=== PATIENT | female | born 1985 | race Caucasian/White ===

== ENCOUNTER → 2020-11-01 11:18 | Outpatient (BNVA) | payer OTHER, SELFPAY | PROVIDERS: PCP Internal Medicine; Visit Provider Advanced Practice Midwife | DX: Z76.89 Persons encountering health services in other specified circumstances (principal) ==

== ENCOUNTER 2020-12-22 10:52 | Outpatient (REF) | payer OTHER, SELFPAY ==
[2020-12-22 11:43] LABS: MANUAL DIFF FLAG NO
[2020-12-22 11:50] LABS: Basophils Percent Auto 0.7 % (0-2); Eosinophils Percent Auto 0.7 % (0-4); Hematocrit 37.8 % (37-47); Hemoglobin 12.5 g/dl (12.0-16.0); Lymphocytes Absolute Auto 1.8 X10*3/uL (1.2-4.9); Lymphocytes Percent Auto 44.4 % (20-40); Mean Corpuscular HGB Conc 33.1 g/dl (31.0-35.0); Mean Corpuscular Hemoglobin 30.6 pg (27.0-33.0); Mean Corpuscular Volume 92.4 fL (80-98); Mean Platelet Volume 10.7 fL (9.4-12.3); Monocytes Absolute Auto 0.2 X10*3/uL (0.1-1.2); Monocytes Percent Auto 4.4 % (2-11); Neutrophils Percent Auto 49.8 % (45-73); Platelet Count 246 X10*3/uL (160-400); Red Blood Count 4.09 X10*6/uL (4.20-5.50); Red Cell Distribution Width 12.3 % (11.0-16.0); White Blood Count 4.1 X10*3/uL (4.8-10.8)
[2020-12-22 12:27] LABS: Anion Gap 10 (12-20); Blood Urea Nitrogen 18 mg/dL (9-16); Carbon Dioxide 27 mmol/L (22-29); Chloride 105 mmol/L (96-108); Potassium 4.2 mmol/L (3.3-5.1); Sodium 138 mmol/L (135-145)
[2020-12-22 12:28] LABS: Alanine Aminotransferase 17 U/L (0-31); Alkaline Phosphatase 41 U/L (39-117); Aspartate Amino Transferase 18 U/L (5-31); Bilirubin Total 0.8 mg/dL (0.0-1.0); Calcium 8.8 mg/dL (8.4-10.2); Cholesterol 230 mg/dL; Estimated Glomerular Filt Rate > 60; Glucose Fasting 81 mg/dL (60-99); HDL Cholesterol 97 mg/dL; LDL Cholesterol Calculated 123 mg/dl; Total Protein 7.4 g/dL (6.5-8.0); Triglycerides 52 mg/dL
[2020-12-22 12:47] LABS: Vitamin D 25-OH Total 22.7 ng/mL (>30)
[2020-12-23 19:09] LABS: Folate 17.9 ng/mL (> or = 4.0); Vitamin B12 600 pg/mL (200-900)
== END 2020-12-22 10:53 | disposition home or self-care (01) ==
LOC: HO.LAB 10:52
PROVIDERS: PCP Internal Medicine; Visit Provider Internal Medicine
DX: R53.82 Chronic fatigue, unspecified (principal); E66.3 Overweight
CPT/HCPCS: 36415; 80053; 80061; 82306; 82607; 82746; 84443; 85025

== ENCOUNTER 2021-01-19 10:58 | Outpatient (REF) | payer OTHER, SELFPAY ==
[2021-01-19 17:33] LABS: CT PCR NOT DETECTED (Not Detect.); NG PCR NOT DETECTED (Not Detect.)
== END 2021-01-19 10:59 | disposition home or self-care (01) ==
LOC: HO.LAB 10:58
PROVIDERS: PCP Internal Medicine; Visit Provider Advanced Practice Midwife
DX: Z30.430 Encounter for insertion of intrauterine contraceptive device (principal); Z20.2 Contact with and (suspected) exposure to infections with a predominantly sexual mode of transmission
CPT/HCPCS: 58300; 81025; 87491; 87591

== ENCOUNTER → 2021-05-17 14:24 | Outpatient (BNVA) | payer OTHER, SELFPAY | PROVIDERS: PCP Internal Medicine; Visit Provider Surgery Vascular Surgery | DX: I83.12 Varicose veins of left lower extremity with inflammation (principal); I83.11 Varicose veins of right lower extremity with inflammation | CPT/HCPCS: 99202 ==

== ENCOUNTER 2021-06-13 10:14 | Outpatient (REF) | payer OTHER, SELFPAY ==
--- NOTE | ~2021-06-13 | US_ITS ---
EXAMINATION: BILATERAL LOWER EXTREMITY VENOUS ULTRASOUND (Reflux Exam) CLINICAL INDICATION: This is a 35-year-old female with venous insufficiency. Varicose veins. COMPARISON: None. TECHNIQUE: Color flow triplex imaging and compression Doppler was performed to evaluate both the deep and the superficial systems bilaterally. To evaluate the superficial system, the examination was performed in the upright position. Color-flow Doppler ultrasound and compression ultrasound were utilized. In addition, maneuvers were utilized to demonstrate reflux. FINDINGS: 1. DEEP VENOUS ULTRASOUND OF THE RIGHT LOWER EXTREMITY: Common Femoral Vein: Compressible, normal respiratory variation and augmented flow. Femoral vein: Compressible, normal color flow and augmentation. Popliteal Vein: Compressible, normal augmentation. Deep Reflux: There is no evidence of reflux in the deep system in either the common femoral vein or the popliteal vein. . There is no evidence of a Scales's cyst. 2. SUPERFICIAL ULTRASOUND WITH DOPPLER OF RIGHT LOWER EXTREMITY GREAT SAPHENOUS VEIN: Saphenofemoral junction: 0.3 cm Mid thigh: 0.1 cm Above knee: 0.2 cm Below knee: 0.2 cm Mid calf: 0.1 cm Ankle: 0.1 cm GSV REFLUX: No evidence of reflux. DUPLICATED GREAT SAPHENOUS VEIN: None SMALL SAPHENOUS VEIN: Upper: 0.2 cm Lower: 0.1 cm SSV REFLUX: No evidence of reflux. VEIN OF GIACOMINI: None Imaged. PERFORATORS: None Imaged VARICOSITIES: None Imaged 3. DEEP VENOUS ULTRASOUND OF THE LEFT LOWER EXTREMITY: Common Femoral Vein: Compressible, normal respiratory variation and augmented flow. Femoral vein: Compressible, normal color flow and augmentation. Popliteal Vein: Compressible, normal augmentation. Deep Reflux: There is no evidence of reflux in the deep system in either the common femoral vein or the popliteal vein. There is no evidence of a Scales's cyst. 4. SUPERFICIAL ULTRASOUND WITH DOPPLER OF LEFT LOWER EXTREMITY GREAT SAPHENOUS VEIN: Saphenofemoral junction: 0.2 cm Mid thigh: 0.1 cm Above knee: 0.2 cm Below knee: 0.1 cm Mid calf: Not seen Ankle: Not seen GSV REFLUX: No evidence of reflux. DUPLICATED GREAT SAPHENOUS VEIN: None SMALL SAPHENOUS VEIN: Upper: 0.1 cm Lower: 0.1 cm SSV REFLUX: No evidence of reflux. VEIN OF GIACOMINI: None Imaged. PERFORATORS: None Imaged VARICOSITIES: None Imaged US/US venous duplex LE BI IMPRESSION: 1. There are bilateral patent great saphenous veins and small saphenous veins, respectively, without evidence of reflux or insufficiency. 2. No varicose veins are seen.
== END 2021-06-13 10:15 | disposition home or self-care (01) ==
LOC: HO.US 10:14
PROVIDERS: PCP Internal Medicine; Visit Provider Surgery Vascular Surgery
DX: I83.893 Varicose veins of bilateral lower extremities with other complications (principal)
CPT/HCPCS: 93970

== ENCOUNTER → 2021-06-16 09:45 | Outpatient (BNVA) | payer OTHER, SELFPAY | PROVIDERS: PCP Internal Medicine; Visit Provider Surgery Vascular Surgery | DX: I83.11 Varicose veins of right lower extremity with inflammation (principal) | CPT/HCPCS: 99212 ==

== ENCOUNTER 2022-06-09 15:53 | Outpatient (REF) | payer OTHER, SELFPAY ==
[2022-06-10 02:43] LABS: CT PCR NOT DETECTED (Not Detect.); NG PCR NOT DETECTED (Not Detect.)
[2022-06-10 15:08] LABS: BV Int Neg Control Negative (Negative); BV Int Pos Control Positive (Positive)
== END 2022-06-09 15:54 | disposition home or self-care (01) ==
LOC: HO.LAB 15:53
PROVIDERS: Visit Provider Advanced Practice Midwife
DX: N89.8 Other specified noninflammatory disorders of vagina (principal); N92.0 Excessive and frequent menstruation with regular cycle; N92.1 Excessive and frequent menstruation with irregular cycle; R10.2 Pelvic and perineal pain; Z11.3 Encounter for screening for infections with a predominantly sexual mode of transmission; Z13.29 Encounter for screening for other suspected endocrine disorder
CPT/HCPCS: 87480; 87491; 87510; 87591; 87660; 99212

== ENCOUNTER 2022-07-26 14:34 | Outpatient (REF) | payer OTHER, SELFPAY ==
--- NOTE | ~2022-07-26 | US_ITS ---
EXAMINATION: US PELVIS CLINICAL INFORMATION: Pelvic and perineal pain; the last menstrual period was on 07/14/2022. COMPARISON: KUB dated 12/25/2018. TECHNIQUE: Ultrasound of the pelvis is performed using both transabdominal and transvaginal transducers along with Doppler. Transvaginal imaging is performed due to inadequate visualization transabdominally. FINDINGS: Uterus: The uterus is retroverted and retroflexed. The uterus measures 11.1 x 4.4 x 5.1 cm. The double wall endometrial thickness is 5 mm. An intrauterine device is seen within the endometrial canal. This appears mildly angulated posteriorly (78/81). The uterus is smooth in contour and has normal myometrial echogenicity. FIBROIDS: There are 3 fibroids seen. 1. Location: Rightward body, myometrial. Size: 0.7 x 0.7 x 0.8 cm. Fibroid characteristics: Hypoechoic. 2. Location: Posterior body, subserosal. Size: 1.0 x 0.8 x 1.1 cm. Fibroid characteristics: Heterogeneously hypoechoic. 3. Location: Leftward body, myometrial. Size: 1.4 x 1.1 x 1.4 cm. Fibroid characteristics: Heterogeneous echotexture. Adnexa: Both ovaries are visualized. There is normal color flow to the adnexa. There is no ovarian torsion. The right ovary measures 3.4 x 2.6 x 2.0 cm (volume 9.1 mL). The right ovary contains an equivocal 2.0 x 1.8 x 1.0 cm largest solid nodule, with a few peripheral cysts within it. The right ovary contains a dominant 0.8 x 1.4 x 1.1 cm anechoic, simple cyst. The right ovary measures 2.5 x 1.5 x 1.4 cm (volume 2.7 mL). There is moderate anechoic free fluid within the cul-de-sac. US/US pelvic and transvaginal IMPRESSION: 1. There are uterine fibroids, as detailed. 2. An intrauterine device is seen within the endometrial canal. This appears mildly angulated posteriorly. 3. A 2.0 cm solid right ovarian nodule is questioned, versus asymmetric focus of parenchymal tissue. There are simple appearing right ovarian cysts and follicles. As a precaution, a pelvic ultrasound examination is recommended in 6-12 weeks to ensure regression/resolution. 4. There is moderate free fluid within the cul-de-sac.
[2022-07-26 15:57] LABS: MANUAL DIFF FLAG NO
[2022-07-26 16:43] LABS: Basophils Percent Auto 0.4 % (0-2); Eosinophils Percent Auto 0.1 % (0-4); Hematocrit 38.2 % (37.0-47.0); Hemoglobin 12.7 g/dl (12.0-16.0); Imm Gran Abs Auto 0.02 X10*3/uL (0.00-0.03); Imm Gran Pct Auto 0.3 % (0.0-0.4); Lymphocytes Absolute Auto 2.1 X10*3/uL (1.2-4.9); Lymphocytes Percent Auto 31.7 % (20-40); Mean Corpuscular HGB Conc 33.2 g/dl (31.0-35.0); Mean Corpuscular Hemoglobin 30.1 pg (27.0-33.0); Mean Corpuscular Volume 90.5 fL (80.0-98.0); Mean Platelet Volume 10.3 fL (9.4-12.3); Monocytes Absolute Auto 0.3 X10*3/uL (0.1-1.2); Monocytes Percent Auto 5.1 % (2-11); Neutrophils Absolute Auto 4.2 x10*3/uL (2.0-8.3); Neutrophils Percent Auto 62.4 % (45-73); Platelet Count 289 X10*3/uL (160-400); Red Blood Count 4.22 X10*6/uL (4.20-5.50); Red Cell Distribution Width 12.7 % (11.0-16.0); White Blood Count 6.7 X10*3/uL (4.8-10.8)
[2022-07-26 17:35] LABS: Thyroid Stimulating Hormone 1.54 uIU/mL (0.32-4.0)
== END 2022-07-26 14:35 | disposition home or self-care (01) ==
LOC: HO.US 14:34
PROVIDERS: PCP Internal Medicine; Visit Provider Advanced Practice Midwife
DX: Z30.431 Encounter for routine checking of intrauterine contraceptive device (principal); R10.2 Pelvic and perineal pain; N92.1 Excessive and frequent menstruation with irregular cycle
CPT/HCPCS: 36415; 76830; 76856; 84443; 85025

== ENCOUNTER 2022-08-15 11:31 | Outpatient (REF) | payer OTHER, SELFPAY ==
[2022-08-17 22:17] LABS: HPV mRNA E6/E7 rflx Not Detected (Not Detected)
== END 2022-08-15 11:32 | disposition home or self-care (01) ==
LOC: HO.LNP 11:31
PROVIDERS: Visit Provider Advanced Practice Midwife
DX: Z01.419 Encounter for gynecological examination (general) (routine) without abnormal findings (principal)
CPT/HCPCS: 87624; 88142

== ENCOUNTER 2022-08-15 11:34 | Outpatient (REF) | payer OTHER, SELFPAY ==
[2022-08-15 17:30] LABS: CT PCR NOT DETECTED (Not Detect.); NG PCR NOT DETECTED (Not Detect.)
[2022-08-16 04:27] LABS: HBc Num1 0.15 S/CO (0.00-0.79); HIV AB/AG Nonreactive (Nonreactive); HIV Num 1 0.07 S/CO (0.00-0.99); Hepatitis B Core Antibody Nonreactive (Nonreactive); ~Hepatitis C Antibody Nonreactive (Nonreactive)
[2022-08-16 05:23] LABS: Syphilis Screen Nonreactive (Nonreactive)
[2022-08-16 09:21] LABS: BV Int Neg Control Negative (Negative); BV Int Pos Control Positive (Positive)
[2022-08-17 12:16] LABS: CA-125 9 U/mL (<35)
== END 2022-08-15 11:35 | disposition home or self-care (01) ==
LOC: HO.LAB 11:34
PROVIDERS: PCP Internal Medicine; Visit Provider Advanced Practice Midwife
DX: Z11.3 Encounter for screening for infections with a predominantly sexual mode of transmission (principal); Z11.4 Encounter for screening for human immunodeficiency virus [HIV]; R30.0 Dysuria; R93.5 Abnormal findings on diagnostic imaging of other abdominal regions, including retroperitoneum; R10.2 Pelvic and perineal pain; D21.9 Benign neoplasm of connective and other soft tissue, unspecified; Z20.2 Contact with and (suspected) exposure to infections with a predominantly sexual mode of transmission
CPT/HCPCS: 81003; 86304; 86704; 86780; 86803; 87389; 87480; 87491; 87510; 87591; 87660; 99212

== ENCOUNTER 2022-09-05 09:01 | Outpatient (REF) | payer OTHER, SELFPAY ==
--- NOTE | ~2022-09-05 | XR_ITS ---
EXAMINATION: XR SHOULDER, RIGHT CLINICAL INFORMATION: Pain right shoulder COMPARISON: None TECHNIQUE: Right shoulder is imaged in 4 views. FINDINGS: There is no fracture or dislocation or destructive process. Normal bony mineralization. The glenohumeral joint appears normal. The acromioclavicular alignment is normal. There are no visible rotator cuff calcifications. XR/XR shoulder RT min 2V IMPRESSION: Normal right shoulder.
== END 2022-09-05 09:02 | disposition home or self-care (01) ==
LOC: HO.XRAY 09:01
PROVIDERS: PCP Internal Medicine; Visit Provider Internal Medicine
DX: M25.511 Pain in right shoulder (principal)
CPT/HCPCS: 73030

== ENCOUNTER 2022-09-15 14:53 | Outpatient (REF) | payer OTHER, SELFPAY ==
--- NOTE | ~2022-09-15 | US_ITS ---
EXAMINATION: US PELVIS CLINICAL INFORMATION: Follow-up right ovarian nodule. LMP about 2 weeks ago. COMPARISON: Pelvic ultrasound 07/26/2022. TECHNIQUE: Ultrasound of the pelvis is performed using both transabdominal and transvaginal transducers along with Doppler. Transvaginal imaging is performed due to inadequate visualization transabdominally. FINDINGS: The uterus is retroverted and retroflexed measuring 8.6 x 4.0 x 4.8 cm. Several uterine fibroids are again noted as follow: 1. A 0.8 x 0.8 x 0.8 cm anterior upper intramural fibroid, previously 0.7 x 0.7 x 0.8 cm. 2. A 1 x 0.9 x 1 cm posterior upper intramural fibroid, previously 1 x 0.8 x 1.1 cm. 3. A 1.2 x 1 x 1.2 cm anterior mid uterine intramural fibroid, previously 1.4 x 1.1 x 1.4 cm. The endometrium measures 0.8 cm in thickness. There is some questionable slightly more superior location of the IUD within the endometrium for what is normally expected, not extending to the cervix. There is also questionably extension of the superior aspect of the IUD into the myometrium. The right ovary measures 2.7 x 2.1 x 1.8 cm (5 mL and the left ovary measures 2.7 x 1.8 x 2 cm (5 mL). There is preserved flow to both ovaries on color Doppler the moment of this examination. There is a 1.7 x 1.4 x 1.4 cm complex mixed cystic and solid observation in the right ovary, previously more homogeneous measuring 2 x 1.8 x 1 cm. There is a 1.4 x 1.5 x 1.2 cm cystic lesion in the left ovary with peripheral hyperemia favoring to represent a corpus luteal cyst. Small amount of free fluid, nonspecific but likely physiologic. US/US pelvic and transvaginal IMPRESSION: 1. There is a 1.7 cm complex mixed cystic and solid observation in the right ovary, previously 2 cm. Recommend further evaluation with an MR of the pelvis with and without intravenous contrast. 2. There is a 1.5 cm cystic lesion in the left ovary favoring to represent a corpus luteal cyst. 3. There is a questionable slightly more superior location of the IUD for what is normally expected with possible extension of the superior aspect of the IUD into the myometrium. Recommend correlation with physical examination. 4. Multiple intramural uterine fibroids are again noted. The report will be called to the ordering clinician by a [facility] Phys[facility] [employer]i U[employer] Engineer.
== END 2022-09-15 14:54 | disposition home or self-care (01) ==
LOC: HO.US 14:53
PROVIDERS: Visit Provider Advanced Practice Midwife
DX: R93.5 Abnormal findings on diagnostic imaging of other abdominal regions, including retroperitoneum (principal)
CPT/HCPCS: 76830; 76856

== ENCOUNTER → 2022-09-25 09:35 | Outpatient (BNVA) | payer OTHER, SELFPAY | PROVIDERS: PCP Internal Medicine; Visit Provider Advanced Practice Midwife | DX: Z30.432 Encounter for removal of intrauterine contraceptive device (principal); Z71.2 Person consulting for explanation of examination or test findings; N92.0 Excessive and frequent menstruation with regular cycle; N83.299 Other ovarian cyst, unspecified side; D25.9 Leiomyoma of uterus, unspecified | CPT/HCPCS: 58301; 99212 ==

== ENCOUNTER 2022-09-28 11:52 | Outpatient (REF) | payer OTHER, SELFPAY ==
[2022-09-28 12:22] LABS: Hematocrit 41.6 % (37.0-47.0); Hemoglobin 13.5 g/dl (12.0-16.0); Mean Corpuscular HGB Conc 32.5 g/dl (31.0-35.0); Mean Corpuscular Hemoglobin 29.6 pg (27.0-33.0); Mean Corpuscular Volume 91.2 fL (80.0-98.0); Mean Platelet Volume 9.9 fL (9.4-12.3); Platelet Count 283 X10*3/uL (160-400); Red Blood Count 4.56 X10*6/uL (4.20-5.50); Red Cell Distribution Width 13.2 % (11.0-16.0); White Blood Count 4.2 X10*3/uL (4.8-10.8)
[2022-09-30 08:39] LABS: CA-125 11 U/mL (<35)
== END 2022-09-28 11:53 | disposition home or self-care (01) ==
LOC: HO.LAB 11:52
PROVIDERS: Absent Provider Advanced Practice Midwife; PCP Internal Medicine; Visit Provider Obstetrics & Gynecology
DX: D21.9 Benign neoplasm of connective and other soft tissue, unspecified (principal); N92.0 Excessive and frequent menstruation with regular cycle; N83.299 Other ovarian cyst, unspecified side
CPT/HCPCS: 36415; 85027; 86304

== ENCOUNTER 2022-10-04 16:21 | Outpatient (REF) | payer OTHER, SELFPAY ==
--- NOTE | ~2022-10-04 | MR_ITS ---
EXAMINATION: MRI PELVIS WITH AND WITHOUT CONTRAST CLINICAL INFORMATION: Ovarian cyst COMPARISON: Pelvic ultrasound from 09/15/2022 TECHNIQUE: Multiple routine MRI sequences through the pelvis were obtained on a high-field 1.5 [place] MRI before and after the uneventful administration of 7 mL of Gadavist gadolinium-based IV contrast. FINDINGS: UTERUS: Retroverted uterus has a normal configuration and measures 9 cm [id number] x 4 cm anterior-posterior x 4.1 cm transverse. Normal endometrial thickness, 0.4 cm. Septate configuration of the uterus. Junctional zone is normal in signal and thickness. Suspect prior section based on minimal scarring along the anterior aspect of the lower uterus. At the anterior uterine body there is a myometrial 0.7 cm lesion which is low in signal on T2-weighted imaging. This does not show enhancement on postcontrast imaging, consistent with a fibroid. Along the posterior left lower uterine body there is a 1.1 cm fibroid. CERVIX: Normal. VAGINA: Normal; no mass seen. RIGHT OVARY: The right ovary measures 2.5 x 2.8 x 2.3 cm. Multiple T2 bright nonenhancing lesions are seen, consistent with follicles. The dominant follicle measures up to 1.4 cm. There is also a heterogeneously T2 bright lesion which is also bright on T1-weighted imaging. This measures 1.1 cm and favors a dermoid. There is no separate enhancing lesion identified. LEFT OVARY: The left ovary measures 2.7 x 1.8 x 2.2 cm. cm. Tiny follicles noted. No suspicious mass. KIDNEYS: Two normally positioned kidneys are seen. No hydronephrosis. BLADDER: Urinary bladder normal. PELVIC FREE FLUID: No free fluid or ascites. LYMPH NODES: No pathologically enlarged lymph nodes. OSSEOUS STRUCTURES: No acute or suspicious osseous abnormalities. MR/MR pelvis wo/w con IMPRESSION: 1. Small right ovarian dermoid. No additional mass identified. 2. Normal left ovary. 3. Small uterine fibroids. Septate configuration of the uterus.
== END 2022-10-04 16:22 | disposition home or self-care (01) ==
LOC: HO.MRI 16:21
PROVIDERS: Visit Provider Obstetrics & Gynecology
DX: N83.299 Other ovarian cyst, unspecified side (principal); D21.9 Benign neoplasm of connective and other soft tissue, unspecified; T83.32XA Displacement of intrauterine contraceptive device, initial encounter
CPT/HCPCS: 72197; A9585

== ENCOUNTER → 2022-10-18 14:19 | Outpatient (BNVA) | payer OTHER, SELFPAY | PROVIDERS: PCP Internal Medicine; Visit Provider Advanced Practice Midwife | DX: Z71.2 Person consulting for explanation of examination or test findings (principal); D27.0 Benign neoplasm of right ovary; Z30.09 Encounter for other general counseling and advice on contraception | CPT/HCPCS: 99212 ==

== ENCOUNTER → 2023-03-08 12:51 | Outpatient (BNVA) | payer OTHER, SELFPAY | PROVIDERS: PCP Internal Medicine; Visit Provider Advanced Practice Midwife | DX: Z30.40 Encounter for surveillance of contraceptives, unspecified (principal) | CPT/HCPCS: 99212 ==

== ENCOUNTER 2023-04-23 10:59 | Outpatient (REF) | payer OTHER, SELFPAY ==
[2023-04-23 11:12] LABS: MANUAL DIFF FLAG NO
[2023-04-23 11:52] LABS: Basophils Percent Auto 0.4 % (0-2); Eosinophils Absolute Auto 0.1 X10*3/uL (0.0-0.4); Eosinophils Percent Auto 1.5 % (0-4); Hemoglobin 12.3 g/dl (12.0-16.0); Imm Gran Abs Auto 0.02 X10*3/uL (0.00-0.03); Imm Gran Pct Auto 0.4 % (0.0-0.4); Lymphocytes Absolute Auto 2.1 X10*3/uL (1.2-4.9); Lymphocytes Percent Auto 45.3 % (20-40); Mean Corpuscular HGB Conc 34.2 g/dl (31.0-35.0); Mean Corpuscular Hemoglobin 30.7 pg (27.0-33.0); Mean Corpuscular Volume 89.8 fL (80.0-98.0); Monocytes Absolute Auto 0.3 X10*3/uL (0.1-1.2); Monocytes Percent Auto 5.8 % (2-11); Neutrophils Absolute Auto 2.2 x10*3/uL (2.0-8.3); Neutrophils Percent Auto 46.6 % (45-73); Platelet Count 307 X10*3/uL (160-400); Red Blood Count 4.01 X10*6/uL (4.20-5.50); Red Cell Distribution Width 13.2 % (11.0-16.0); White Blood Count 4.7 X10*3/uL (4.8-10.8)
[2023-04-23 13:09] LABS: Alanine Aminotransferase 9 U/L (0-31); Albumin Level 3.5 g/dL (3.5-5.0); Alkaline Phosphatase 32 U/L (39-117); Anion Gap 11 (12-20); Aspartate Amino Transferase 10 U/L (5-31); Bilirubin Total 0.7 mg/dL (0.0-1.0); Blood Urea Nitrogen 12 mg/dL (9-16); Calcium 8.8 mg/dL (8.4-10.2); Carbon Dioxide 21 mmol/L (22-29); Chloride 108 mmol/L (96-108); Cholesterol 196 mg/dL; Estimated Glomerular Filt Rate > 60; Glucose Fasting 79 mg/dL (60-99); HDL Cholesterol 80 mg/dL; LDL Cholesterol Calculated 97 mg/dl; Sodium 136 mmol/L (135-145); Total Protein 6.9 g/dL (6.5-8.0); Triglycerides 96 mg/dL
[2023-04-23 13:28] LABS: Thyroid Stimulating Hormone 1.34 uIU/mL (0.32-4.0)
== END 2023-04-23 11:00 | disposition home or self-care (01) ==
LOC: HO.LAB 10:59
PROVIDERS: PCP Internal Medicine; Visit Provider Internal Medicine
DX: E78.5 Hyperlipidemia, unspecified (principal); R53.83 Other fatigue; K21.9 Gastro-esophageal reflux disease without esophagitis
CPT/HCPCS: 36415; 80053; 80061; 84443; 85025

== ENCOUNTER 2024-04-07 13:17 | Outpatient (AMB) | payer OTHER, SELFPAY ==
[2024-04-07 13:21] VITALS: BP 110/70; BMI 30.4
--- NOTE | 2024-04-07 13:21 | MHC.PC.OV ---
Vital Signs 04/07/24 13:21 Height 5 ft 1 in Weight 161 lb BMI 30.4 BP 110/70 Blood Pressure Location Lt brachial Position Sitting Intake Visit Reasons: Stomach issues Intake Note: Patient here c/o stomach issues, lump on left side neck and back, requesting multiple referrals Screen And Cyclone Repairer Required: No Accompanied by: Self / Same As Patient Allergies aspirin Allergy (Mild, Verified 04/07/24 13:33) rash Medication List - Last Reconciled 04/07/24 by Anyi Nixon MD No Known Home Meds Tobacco use date assessed: 04/07/24 Dental Screening Dental Screen Date: 04/07/24 Did you have a dental visit in the last 12 months?: No Did you have a dental problem in the last 6 months where you did not have access to dental care?: No Was dental information given to patient?: Patient has dentist HPI HPI Comments History of Present Illness Details This is a 38-year-old female with obesity that complains of generalized abdominal pain and would like to see Gastroenterology. She also has neck pain and is receiving physical therapy with no significant improvement and I will refer her to pain management. She also has a left lump in the clavicle that bothers her. She has obese with a BMI of 30.4 and would like something to lose weight. No chest pain or shortness on breath. [facility] Medical History Dermoid cyst of right ovary Fibroids Dyslipidemia Abdominal pain Spider veins of both lower extremities Surgical History Hx of section Family History Maternal Grandfather Prostate CA Maternal Grandmother Diabetes Father Diabetes Social History Household Members: Spouse and Children Housing: House Alcohol intake: current Alcohol intake frequency: a few times a month Alcohol type: beer, wine and hard liquor Patient Tobacco Use Status: Never used Tobacco e-Cigarette/Vaping Use: Never Used Second Hand Smoke Exposure: No service: No Current occupational status: unemployed Sexual orientation: Straight/Heterosexual Gender identity: Female Cognitive needs: No Hearing needs: No Vision needs: No Female Reproductive History Menstrual Age of Menarche: 11 Questionnaire PHQ-9 Over the last 2 weeks, how often have you been bothered by any of the following problems? 1. Little interest or pleasure in doing things: not at all 2. Feeling down, depressed, or hopeless: not at all 3. Trouble falling or staying asleep, or sleeping too much: not at all 4. Feeling tired or having little energy: more than half the days 5. Poor appetite or overeating: more than half the days 6. Feeling bad about yourself - or that you are a failure or have let yourself or your family down: not at all 7. Trouble concentrating on things, such as reading the newspaper or watching television: not at all 8. Moving or speaking so slowly that other people could have noticed. Or the opposite - being so fidgety or restless that you have been moving around a lot more than usual: not at all 9. Thoughts that you would be better off or of hurting yourself in some way: not at all Total score: 4 Depression Screening Interpretation: Positive Depression Screening Follow-up: Existing condition and Follow-up Visit Requested Depression Screening Done: Yes 79952 - PHQ-9 Billing: Yes Source: Developed by Drs. Grayson Jaramillo, Radha Moffett, Fred Baker and colleagues, with an educational mary from [employer]. Thrive Questionnaire Date Thrive assessed: 04/07/24 I am a: Patient What is your living situation today?: I have a steady place to live Within the past 12 months, did the food you bought not last and you didn't have the money to get more?: Never true Within the past 12 months, did you worry whether your food would run out before you got money to buy more?: Never true Do you have trouble paying for medicines?: No Do you have trouble getting transportation to medical appointments?: No Do you have trouble paying your heating and electricity bill?: No Do you have trouble taking care of your child, family member or friend?: No Do you have trouble with day-to-day activities such as bathing, preparing meals, shopping, managing finances, etc.?: No Are you currently unemployed and looking for a job?: No Are you interested in more education?: No Please select the resources that you would like help with: None Currently or been in a relationship where the following occur: no concerns reported THRIVE Score: 0 AUDIT C Alcohol Use Questionnaire (AUDIT-C) 1. How often do you have a drink containing alcohol?: 2-4 times a month 2. How many drinks containing alcohol do you have on a typical day when you are drinking?: 1 or 2 3. How often do you have six or more drinks on one occasion?: Never Total Score: 2 Score Reviewed/Action Taken: No ANDRE-7 AMB Questionnaire ANDRE-7 Date ANDRE - 7 assessed: 04/07/24 Feeling nervous, anxious, or on edge: 2 = More than half the days Not being able to stop or control worryin = Not at all Worrying too much about different things: 0 = Not at all Trouble relaxin = Several days Being so restless that it is hard to sit still: 0 = Not at all Becoming easily annoyed or irritable: 0 = Not at all Feeling afraid as if something awful might happen: 0 = Not at all Total ANDRE-7 score (0-4 normal; 5-9 mild; 10-14 moderate; 15-21 severe): 3 Source: Developed by Drs. Grayson Jaramillo, Radha Moffett, Fred Baker and colleagues, with an educational mary from [employer]. ANDRE-7 Assessment Billing ANDRE-7 Assessment Tool: ANDRE-7 Assessment 99989 Review of Systems Const All systems reviewed & are unremarkable except as noted in HPI and below ENT Reports neck pain Card Denies chest pain at rest, Denies chest pain with activity, Denies edema, Denies irregular heart rhythm, Denies claudication, Denies dyspnea, Denies dyspnea on exertion, Denies orthopnea, Denies paroxysmal nocturnal dyspnea and Denies slow heart rate Resp Denies cough, Denies dyspnea and Denies dyspnea on exertion GI Reports abdominal pain, Denies change in bowel habits, Denies excessive flatus, Reports diarrhea, Denies nausea and Denies vomiting Musc Denies atrophy, Denies deformity, Denies limited range of motion and Reports neck pain Physical exam (Primary Care) Vital Signs: Last Vital Signs BP 110/70 04/07/24 13:21 BMI result Body Mass Index 30.4 Tobacco/Smoking Status: Tobacco use Status Tobacco use date assessed 04/07/24 04/07/24 13:28 Patient Tobacco Use Status Never used Tobacco 04/07/24 13:28 e-Cigarette/Vaping Use Never Used 04/07/24 13:28 PHQ-9: PHQ-9 Score PHQ-9: Total score 4 04/07/24 13:30 Depression Screening Interpretation: Positive Depression Screening Follow-up: Existing condition and Follow-up Visit Requested Thrive Assessment: Date of Thrive Assessment Date Thrive assessed 04/07/24 04/07/24 13:28 Currently or been in a relationship where the following occur: no concerns reported Resp Effort & Inspection: normal respiratory effort Auscultation: clear to auscultation bilaterally Cardio Jugular venous distension: no JVD Rate: regular rate Rhythm: regular rhythm Heart sounds: S1 normal heart sound present and S2 normal heart sound present GI Inspection: Yes normal to inspection Palpation (GI): Soft to palpation and nontender Auscultation: normal bowel sounds Extrem Other: cyst on left clavicle General: Yes full ROM Assessment and Plan Assessment & Plan (1) Abdominal pain: Code(s): R10.9 - Unspecified abdominal pain Qualifiers: Abdominal location: generalized Qualified Code(s): R10.84 - Generalized abdominal pain Plan: Referred to Gastroenterology. (2) Neck pain: Code(s): M54.2 - Cervicalgia Plan: Referred to pain management. (3) Obesity, Class I, BMI 30-34.9: Code(s): E66.9 - Obesity, unspecified Plan: Start diet and exercise. Start Wegovy. BMI goal is less than 30. (4) Cyst of left clavicle: Code(s): M85.612 - Other cyst of bone, left shoulder Plan: Ultrasound ordered. Orders: Orders Comprehensive [place]. Panel Fast Today R10.9 - Unspecified abdominal pain US extremity nonvascular Today M85.612 - Other cyst of bone, left shoulder Complete Blood Count Auto Diff Today R10.9 - Unspecified abdominal pain Referrals Pain Management Referral M54.2 - Cervicalgia Gastroenterology Referral R10.9 - Unspecified abdominal pain Medications: New semaglutide (weight loss) (Wegovy) administer weeks 1 through 4 of therapy 0.25 mg (0.5 mL) subcut QWEEK 4 weeks 2 mL 0RF E66.9 - Obesity, unspecified Discontinued desogestrel-ethinyl estradiol 0.15-0.03 mg (Apri) Discontinued Reason: Patient Completed Course 1 tab PO DAILY 28 tabs 2RF OCP Coding Level of Care Code Est Pt Level 4 (60001) Complex EM visit Add On G2211 Diagnoses Generalized abdominal pain R10.84 Abdominal location: generalized Neck pain M54.2 Obesity, Class I, BMI 30-34.9 E66.9 Cyst of left clavicle M85.612 Additional Codes ANDRE-7 Assessment Billing - ANDRE-7 Assessment Tool: ANDRE-7 Assessment 70981 ([id number]) Time Spent (min) 23
== END 2024-04-07 13:41 | disposition home or self-care (01) ==
PROVIDERS: PCP Internal Medicine; Visit Provider Internal Medicine
DX: R10.84 Generalized abdominal pain (principal); M54.2 Cervicalgia; E66.9 Obesity, unspecified; Z68.30 Body mass index [BMI] 30.0-30.9, adult; M85.612 Other cyst of bone, left shoulder
CPT/HCPCS: 99214; G2211

== ENCOUNTER 2024-04-11 08:23 | Outpatient (REF) | payer OTHER, SELFPAY ==
[2024-04-11 08:51] LABS: MANUAL DIFF FLAG NO
[2024-04-11 09:48] LABS: Basophils Percent Auto 0.4 % (0-2); Eosinophils Absolute Auto 0.1 X10*3/uL (0.0-0.4); Eosinophils Percent Auto 1.5 % (0-4); Hematocrit 38.4 % (37.0-47.0); Hemoglobin 12.7 g/dl (12.0-16.0); Imm Gran Abs Auto 0.02 X10*3/uL (0.00-0.03); Imm Gran Pct Auto 0.4 % (0.0-0.4); Lymphocytes Absolute Auto 1.8 X10*3/uL (1.2-4.9); Lymphocytes Percent Auto 40.2 % (20-40); Mean Corpuscular HGB Conc 33.1 g/dl (31.0-35.0); Mean Corpuscular Hemoglobin 30.7 pg (27.0-33.0); Mean Corpuscular Volume 92.8 fL (80.0-98.0); Mean Platelet Volume 10.3 fL (9.4-12.3); Monocytes Absolute Auto 0.3 X10*3/uL (0.1-1.2); Monocytes Percent Auto 6.8 % (2-11); Neutrophils Absolute Auto 2.3 x10*3/uL (2.0-8.3); Neutrophils Percent Auto 50.7 % (45-73); Platelet Count 272 X10*3/uL (160-400); Red Blood Count 4.14 X10*6/uL (4.20-5.50); Red Cell Distribution Width 13.3 % (11.0-16.0); White Blood Count 4.5 X10*3/uL (4.8-10.8)
[2024-04-11 10:07] LABS: Alanine Aminotransferase 15 U/L (0-31); Albumin Level 3.7 g/dL (3.5-5.0); Alkaline Phosphatase 41 U/L (39-117); Anion Gap 10 (12-20); Aspartate Amino Transferase 13 U/L (5-31); Bilirubin Total 0.6 mg/dL (0.0-1.0); Blood Urea Nitrogen 14 mg/dL (9-16); Calcium 9.6 mg/dL (8.4-10.2); Carbon Dioxide 26 mmol/L (22-29); Chloride 107 mmol/L (96-108); Estimated Glomerular Filt Rate > 60; Glucose Fasting 86 mg/dL (60-99); Potassium 4.1 mmol/L (3.3-5.1); Sodium 139 mmol/L (135-145); Total Protein 6.9 g/dL (6.5-8.0)
[2024-04-11 15:43] LABS: Bacterial Vaginosis PCR NEGATIVE (Negative); Candida Group PCR NOT DETECTED (Not Detect); Candida glab krusei PCR NOT DETECTED (Not Detect); Trichomonas vaginalis PCR NOT DETECTED (Not Detect)
[2024-04-11 16:19] LABS: CT PCR NOT DETECTED (Not Detect.); NG PCR NOT DETECTED (Not Detect.)
== END 2024-04-11 08:24 | disposition home or self-care (01) ==
LOC: HO.LAB 08:23
PROVIDERS: Advanced Practice Midwife; PCP Internal Medicine; Visit Provider Internal Medicine
DX: D64.9 Anemia, unspecified (principal); R10.9 Unspecified abdominal pain; Z01.419 Encounter for gynecological examination (general) (routine) without abnormal findings
CPT/HCPCS: 0352U; 0353U; 36415; 80053; 85025; 99395

== ENCOUNTER 2024-04-11 09:41 | Outpatient (AMB) | payer OTHER, SELFPAY ==
--- NOTE | 2024-04-11 09:53 | A.OFFVIS_ITS ---
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 Doing well with concerns: vaginal odor, no itching, cramping w/intimacy. History dermoid was referred to [facility] and seen 03/19/2023 it was recommended that she have a follow up ultrasound in 3 months and a follow up appointment, patient reports she was unaware that she needs to follow up at [facility] and that no one ever called her for an appointment. Stopped BC due to somach upset last month. She has interested in a tubal ligation. Currently is sexually active, condoms are irritating for herself. She denies vaginal itching and irritation. STI screening offered; she accepts. Denies family history of breast, ovarian or colon cancer. Last pap smear 2021, negative. [facility] Medical History Dermoid cyst of right ovary Fibroids Dyslipidemia Abdominal pain Spider veins of both lower extremities Surgical History Hx of section Family History Maternal Grandfather Prostate CA Maternal Grandmother Diabetes Father Diabetes Social History Household Members: Spouse and Children Housing: House Alcohol intake: current Alcohol intake frequency: a few times a month Alcohol type: beer, wine and hard liquor Patient Tobacco Use Status: Never used Tobacco e-Cigarette/Vaping Use: Never Used Second Hand Smoke Exposure: No service: No Current occupational status: unemployed Sexual orientation: Straight/Heterosexual Gender identity: Female Cognitive needs: No Hearing needs: No Vision needs: No Female Reproductive History Menstrual Age of Menarche: 11 Total pregnancies: 1 Full term: 1 Number of Living Children: 1 Date of last pap smear: 08/15/22 Review of Systems Const All systems reviewed & are unremarkable except as noted in HPI and below Reports as per HPI Eyes Reports no additional complaints ENT Reports no additional complaints Card Reports no additional complaints Resp Reports no additional complaints GI Reports as per HPI and Reports no additional complaints Reports as per HPI Musc Reports no additional complaints Skin/Breast Reports as per HPI Neuro Reports no additional complaints Psych Reports no additional complaints Endo Reports no additional complaints Dago/Lymph Reports no additional complaints Aller/Immun Reports no additional complaints Physical Exam Vital Signs: BMI result Body Mass Index 30.4 Const General: cooperative, healthy appearing, no acute distress, well developed and alert Orientation/consciousness: patient oriented x3 HEENT Head: Yes normal to inspection Eyes General: appearance normal, both eyes and all related structures Neck Neck: Yes normal visual inspection Thyroid: Thyroid normal Chest Chest palpation & inspection: normal inspection of the chest and other (no puckering, dimpling, peau de orange, retraction, discharge, masses) Breast/axilla inspection: normal inspection of the breasts Breast/axilla palpation: normal palpation of the breasts Resp Effort & Inspection: normal respiratory effort GI Inspection: Yes normal to inspection Palpation (GI): Soft to palpation Rectal Exam - Female: deferred General: Yes bladder normal to palpation External Female Exam: normal external appearance and normal appearance of the urethra Speculum Exam - Vagina: normal appearance of the vagina, normal palpation and normal vaginal discharge Speculum Exam - Cervix: normal appearance of the cervix and normal palpation Bimanual exam- vagina & uterus: normal bimanual exam, normal palpation, uterine size normal, bladder normal to palpation, normal palpation and non-tender Bimanual Exam- Adnexa, other: no masses Skin General skin exam: no rashes or lesions noted Rashes: no rashes Neuro General: patient oriented x3 Cognition (Neuro): normal cognition Extrem General: Yes normal to inspection Psych Attitude: cooperative Thought process: Normal thought process present Assessment & Plan Assessment & Plan (1) Encounter for well woman exam with routine gynecological exam: Code(s): Z01.419 - Encounter for gynecological examination (general) (routine) without abnormal findings Category: Medical (2) Dermoid: Code(s): D36.9 - Benign neoplasm, unspecified site Plan Discussed: Current recommendations for pap smears per ASCCP guidelines. Breast awareness and periodic breast exams. Maintain a healthy lifestyle including a well balanced diet and routine exercise. Use condoms for STI and prevention. Advised to use other methods including spermicide, withdrawal, abstinence to prevent unwanted until she can get back on control. Consult for tubal ligation will be made in consult for control options will be scheduled for next week. Mammogram ordered for after 39th birthday in September. GC chlamydia and BV panel obtained await results for plan of care. Ultrasound ordered for dermoid evaluation, and then patient to return to office for follow-up discussion on results and plan of care. Patient verbalizes understanding and agrees to the plan of care. She was given opportunity to ask questions and all questions were answered to the best of my ability. 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 This note is constructed using voice recognition software. While every effort has been made to ensure accuracy, fusing machine operator errors may have been included. Orders: Orders Bacterial Vaginosis Panel Today Z01.419 - Encounter for gynecological examination (general) (routine) without abnormal findings US pelvic and transvaginal Today D36.9 - Benign neoplasm, unspecified site MM tomosynthesis screening BI 10/27/24 Z12.31 - Encounter for screening mammogram for malignant neoplasm of breast CT NG by PCR Today Z01.419 - Encounter for gynecological examination (general) (routine) without abnormal findings Coding Level of Care Code Est Pt Prev Care 18-39y(27649) Diagnoses Encounter for well woman exam with routine gynecological exam Z01.419 Dermoid D36.9
[2024-04-11 10:00] VITALS: BMI 30.4
== END 2024-04-11 10:31 | disposition home or self-care (01) ==
LOC: HO.HWS 09:41
PROVIDERS: PCP Internal Medicine; Visit Provider Advanced Practice Midwife
DX: Z01.419 Encounter for gynecological examination (general) (routine) without abnormal findings (principal); D36.9 Benign neoplasm, unspecified site
CPT/HCPCS: 99395

== ENCOUNTER 2024-04-11 10:43 | Outpatient (REF) | payer OTHER, SELFPAY | END 2024-04-11 10:44 | disposition home or self-care (01) | LOC: HO.LNP 10:43 | PROVIDERS: Visit Provider Advanced Practice Midwife | DX: Z13.89 Encounter for screening for other disorder (principal) ==

== ENCOUNTER 2024-04-15 13:31 | Outpatient (REF) | payer OTHER, SELFPAY ==
--- NOTE | ~2024-04-15 | US_ITS ---
EXAMINATION: US EXTREMITY, NONVASCULAR CLINICAL INFORMATION: Other cyst of bone, left shoulder, no prior imaging. COMPARISON: None available. TECHNIQUE: Targeted ultrasound images were obtained by the station cook of the area of concern as indicated by the patient in the left shoulder/clavicular region. Radiologist was not in attendance. Images were later provided for interpretation. FINDINGS: No discrete mass or fluid collection identified in the area of concern as indicated by the patient in the left shoulder/clavicular region. US/US extremity nonvascular IMPRESSION: No discrete mass or fluid collection identified in the area of concern as indicated by the patient in the left shoulder/clavicular region. Decisions regarding further imaging, treatment or biopsy should be based on the clinical exam, as not all abnormalities are detectable on ultrasound studies.
== END 2024-04-15 13:32 | disposition home or self-care (01) ==
LOC: HO.US 13:31
PROVIDERS: PCP Internal Medicine; Visit Provider Internal Medicine
DX: M85.612 Other cyst of bone, left shoulder (principal)
CPT/HCPCS: 76882

== ENCOUNTER 2024-04-17 10:39 | Outpatient (AMB) | payer OTHER, SELFPAY ==
[2024-04-17 10:46] VITALS: BP 120/74; BMI 30.2
--- NOTE | 2024-04-17 10:46 | A.OFFVIS_ITS ---
Vital Signs 04/17/24 10:46 Height 5 ft 1 in Weight 160 lb BMI 30.2 BP 120/74 Blood Pressure Location Rt brachial Position Sitting Intake Visit Reasons: BC Consult/per Denise Mulligan Nurse Sexual Assault Required: Yes Nurse Sexual Assault Language: Shopping Investigator Name: Danilo([id number]) Recreational Programs Director: Recreational Programs Director Present Allergies aspirin Allergy (Mild, Verified 04/17/24 10:48) rash Is last menstrual period known: Yes Last menstrual period: 03/31/24 HPI Comments Details: Patient is here today for a follow up control consult. She was previously on a pre and ran out she would like to restart she has recently had a menstrual cycle on 04/05/2024. She denies any contraindications to control such as: migraines with aura, history of DVT or pulmonary emboli, high blood pressure, liver disease, thrombolic disorders, Lupus, +RACHAEL, breast cancer, or smoking. [facility] Medical History Dermoid cyst of right ovary Fibroids Dyslipidemia Abdominal pain Spider veins of both lower extremities Surgical History Hx of section Family History Maternal Grandfather Prostate CA Maternal Grandmother Diabetes Father Diabetes Social History Household Members: Spouse and Children Housing: House Alcohol intake: current Alcohol intake frequency: a few times a month Alcohol type: beer, wine and hard liquor Patient Tobacco Use Status: Never used Tobacco e-Cigarette/Vaping Use: Never Used Second Hand Smoke Exposure: No service: No Current occupational status: unemployed Sexual orientation: Straight/Heterosexual Gender identity: Female Cognitive needs: No Hearing needs: No Vision needs: No Female Reproductive History Menstrual Age of Menarche: 11 Duration of menses: 3-5 days Date of last menstrual period: 03/31/24 control method: none Total pregnancies: 1 Full term: 1 Number of Living Children: 1 Review of Systems Const All systems reviewed & are unremarkable except as noted in HPI and below Endo Reports no additional complaints Physical Exam Vital Signs: Last Vital Signs BP 120/74 06/20/24 10:46 BMI result Body Mass Index 30.2 Const General: cooperative, healthy appearing and no acute distress Psych Appearance: well kempt Attitude: cooperative Thought process: Normal thought process present Assessment & Plan Assessment & Plan (1) BCP ( control pills) initiation: Code(s): Z30.011 - Encounter for initial prescription of contraceptive pills Plan Instructed on pill use. Start of pill: within 5 days of a normal menses, if late for menses do a home test if positive do not start the pill and come in for immediate evaluation. Patient was unable to void provide a urine sample today. No issues with recent menstrual cycle, LMP: 04/05/24. How to take: Take at the same time of day. Take with food if nausea occurs, and closer to bedtime may be helpful. What to do when missing a pill or taking one late: take as soon as you remember, and use a back up method (condoms, or abstinence is required) for 7 days. Side effects: break through bleeding, nausea, mood changes, breast tenderness, headaches, bloating. Most of these all resolve in the first 2-3 months of use. Warnings: serious complications from the pill associated with a DVT (deep viem thrombosis), risks to stroke, PE (pulmonary emboli), potentially fatal. Report any serious side effects: call 911 and seek medical emergenct treatment for any ACHES . Abdominal pain (sever). Chest pain (difficulty breathing). Headache (severe). Extremity pain(sudden pain in one extermity). Sudden blindness/loss of vision. Report any medical changes to our office so that we can determine if the pill is an appropriate method for continued use. Keep all follow up appointments for pill use surveilance as directed. Appointment scheduled follow up in May will be combined with her ultrasound follow up visit. Advised to call sooner if there is any concerns. All of her questions and concerns were addressed to the best of my ability and shared deci villa making. She is agreeable to the plan of care. This note is constructed using voice recognition software. While every effort has been made to ensure accuracy, medical authorization specialist errors may have been included. Medications: New desogestrel-ethinyl estradiol 0.15-0.03 mg (Apri) 1 tab PO DAILY 90 tabs 0RF 90 days Coding Level of Care Code Est Pt Level 3 (43379) Diagnoses BCP ( control pills) initiation Z30.011
== END 2024-04-17 11:29 | disposition home or self-care (01) ==
LOC: HO.HWS 10:39
PROVIDERS: PCP Internal Medicine; Visit Provider Advanced Practice Midwife
DX: Z30.011 Encounter for initial prescription of contraceptive pills (principal)
CPT/HCPCS: 99213

== ENCOUNTER → 2024-04-17 10:39 | Outpatient (BNVA) | payer OTHER, SELFPAY | PROVIDERS: PCP Internal Medicine; Visit Provider Advanced Practice Midwife | DX: Z30.011 Encounter for initial prescription of contraceptive pills (principal) | CPT/HCPCS: 99212 ==

== ENCOUNTER 2024-04-21 08:30 | Outpatient (REF) | payer OTHER, SELFPAY ==
--- NOTE | ~2024-04-21 | XR_ITS ---
EXAMINATION: XR cervical spine 5V CLINICAL INFORMATION: Pain COMPARISON: None TECHNIQUE: 5 views of the cervical spine were obtained. FINDINGS: The cervical spine is visualized to the level of C7-T1 on the lateral view. Loss of the usual cervical spine lordosis which may be due to positioning or muscle spasm. Vertebral body heights are maintained. Lateral masses of C1 are well aligned on C2. Visualized portion of the dens is intact. Disc space heights are maintained. No significant neural foraminal narrowing. No prevertebral soft tissue swelling. XR/XR cervical spine 5V IMPRESSION: 1. Loss of the usual cervical spine lordosis which may be due to positioning or muscle spasm. 2. Vertebral body heights are maintained. Disc space heights are maintained.
== END 2024-04-21 08:31 | disposition home or self-care (01) ==
LOC: HO.XRAY 08:30
PROVIDERS: PCP Internal Medicine; Referring Provider Internal Medicine; Visit Provider Anesthesiology
DX: M54.2 Cervicalgia (principal)
CPT/HCPCS: 72050; 99202

== ENCOUNTER 2024-04-21 08:30 | Outpatient (AMB) | payer OTHER, SELFPAY ==
--- NOTE | 2024-04-21 08:32 | A.OFFVIS_ITS ---
Vital Signs 04/21/24 08:54 Height 5 ft 1 in Weight 157 lb 8 oz BMI 29.8 BP 102/60 Blood Pressure Location Lt brachial Position Sitting Respiration 16 Pulse 88 Pulse Source Pulse Oximeter Pulse Oximetry (%) 97 Oxygen Delivery Method Room Air Intake Visit Reasons: Cervicalgia Intake Note: Patient comes in for initial visit was referred by primary care. Reports pain 8/10. Allergies aspirin Allergy (Mild, Verified 04/21/24 08:55) rash HPI Comments Details: Alexander is very pleasant 38 years old female who presents in my office with complains on cervicalgia pain in the entire neck starting from the base of the neck all the way up to the base of the skull. She reports most severe pain which flex her neck forward. She reports also severe pain aggravation when she flexes her head backwards and try to turn her head to the sideways. She reports that she tried in the past application of cold and heat to her neck and she reports minor improvement. She reports that her pain is most severe at night. She reports that sitting and flexing head forward to look at the self for makes her head worse. She can not sleep normally because of her pain can not do activities of daily living she can not take care of herself but she can not function normally. 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 She has 1 child. She is self mobile. She tried ibuprofen p.r.n. for her pain. In terms of tissue damage he prescribes her pain as tight squeezing and tearing sensation. She also tried Tylenol to take her pain down. She never had any images of her cervical spine. She tried physical therapy she had 8 sessions with no success. She tried chiropractic manipulation 8 sessions and it did not help her pain either. She never had any injections. Her past medical history is negative. Her past surgical history is negative. Social history she is not retired. She denies smoking cigarettes she drinks alcohol once a week 2-3 beers sometimes more she denies drinking soda but she takes coffee. Denies recreational drugs. [facility] Medical History Dermoid cyst of right ovary Fibroids Dyslipidemia Abdominal pain Spider veins of both lower extremities Surgical History Hx of section Family History Maternal Grandfather Prostate CA Maternal Grandmother Diabetes Father Diabetes Social History Household Members: Spouse and Children Housing: House Alcohol intake: current Alcohol intake frequency: a few times a month Alcohol type: beer, wine and hard liquor Patient Tobacco Use Status: Never used Tobacco e-Cigarette/Vaping Use: Never Used Second Hand Smoke Exposure: No service: No Current occupational status: unemployed Sexual orientation: Straight/Heterosexual Gender identity: Female Cognitive needs: No Hearing needs: No Vision needs: No Female Reproductive History Menstrual Age of Menarche: 11 Review of Systems Const Reports no additional complaints ENT Reports Normal hearing present Card Reports no additional complaints Resp Reports no additional complaints GI Reports no additional complaints Reports no additional complaints Musc Reports as per HPI Neuro Reports Normal hearing present, Denies Abnormal speech present and Denies Sensory deficit (Neuro) Psych Reports no additional complaints Endo Reports no additional complaints Dago/Lymph Reports no additional complaints Aller/Immun Reports no additional complaints Physical Exam Vital Signs: Last Vital Signs Pulse 88 04/21/24 08:54 Resp 16 04/21/24 08:54 BP 102/60 04/21/24 08:54 Pulse Ox 97 04/21/24 08:54 Oxygen Delivery Method Room Air 04/21/24 08:54 BMI result Body Mass Index 29.8 Const General: no acute distress Orientation/consciousness: patient oriented x3 Eyes General: appearance normal, both eyes and all related structures Pupils: Equal, round and reactive pupils present EOM: EOMs intact bilaterally Neck Other: Flexing forward and flexing backwards strongly aggravates her pain. Axial compression does not aggravate her pain. Lhermitte sign is negative. Spurling test is negative bilaterally. Valsalva maneuver is positive for the pain increase in the cervical spine. Tenderness on palpation in paraspinal spinal region of the entire cervical spine. Neck: Yes normal visual inspection, No full ROM, Yes no lymphadenopathy and Yes no meningeal signs Chest Chest palpation & inspection: normal inspection of the chest Resp Effort & Inspection: normal respiratory effort, able to speak in complete sentences, normal respiratory pattern, no audible wheezes and no cough Cardio Jugular venous distension: no JVD GI Inspection: Yes normal to inspection Neuro General: patient oriented x3, gait normal and no meningeal signs Cranial nerves: Yes CN's II-XII intact bilaterally, Yes Equal, round and reactive pupils present, Yes Normal hearing present and Yes Ability to bilaterally elevate shoulders present Speech: No Abnormal speech present Gait exam (Neuro): Normal gait present Motor exam (neuro): 5/5 motor strength present throughout Sensory Exam: No Sensory deficit (Neuro) Extrem General: No pedal edema Psych Speech and movement: Normal speech and movement present Affect: normal affect Attitude: cooperative Thought process: Normal thought process present Thought content: Normal thought content present Insight: Good insight present (Psych) Judgement: Good judgement present (Psych) Assessment & Plan Assessment & Plan (1) Neck pain: Code(s): M54.2 - Cervicalgia Category: Medical Plan This patient is suffering from cervicalgia which could be the result of muscular spasms and tension, it could be secondary to spondylosis of the cervical spine and facet joint arthropathy. I will send her for the x-ray of the cervical spine to examined possibility of facet arthropathy in the neck. I also will start her on tizanidine 2 mg t.i.d. I also recommended her to start for 15 days ibuprofen 200 mg every 6 hours p.r.n. but rather on the clock.. She requested me to start her on omeprazole because ibuprofen irritate her stomach. We will send omeprazole prescription as well. She will be also called and explained that tizanidine may interact with her control pill and for the 1 month that she will be taking tizanidine the patient would use other means to prevent . She reports Valsalva maneuver aggravates the pain in the cervical spine. If any minimal changes will be found on x-ray will send this patient for the cervical MRI. She reports claustrophobia if she would need to go to the MRI. I would need to prescribe her benzodiazepines such as alprazolam to help her with her anxiety. Orders: Orders XR cervical spine 5V Today M54.2 - Cervicalgia Medications: New tizanidine 2 mg PO TID 1 month PRN 90 tabs 0RF muscle spasticity omeprazole 20 mg PO DAILY 1 month 30 caps 0RF Patient Instructions: I here by testify that I spent 45 minutes in conversation with this patient as well as planning her care and organizing this note. The healthcare architect from [employer] was helping us to maintain this conversation in Italian her #[id number] Coding Level of Care Code New Pt Level 4 (62663) Diagnoses Neck pain M54.2
[2024-04-21 08:54] VITALS: BP 102/60; PULSE 88; RESP 16; O2SAT 97; BMI 29.8
== END 2024-04-21 09:09 | disposition home or self-care (01) ==
PROVIDERS: PCP Internal Medicine; Referring Provider Internal Medicine; Visit Provider Anesthesiology
DX: M54.2 Cervicalgia (principal)
CPT/HCPCS: 99204

== ENCOUNTER 2024-05-05 10:51 | Outpatient (REF) | payer OTHER, SELFPAY ==
--- NOTE | ~2024-05-05 | US_ITS ---
EXAMINATION: US PELVIS CLINICAL INFORMATION: Benign neoplasm, unspecified site. Fibroids, dermoid right ovary, last menstrual period 3 weeks ago. COMPARISON: MR pelvis 10/04/2022. Ultrasound pelvis 09/15/2022. TECHNIQUE: Ultrasound of the pelvis is performed using both transabdominal and transvaginal transducers along with Doppler. Transvaginal imaging is performed due to inadequate visualization transabdominally. FINDINGS: Uterus is retroverted and measures 8.8 x 4.0 x 5.0 cm. Septate configuration of uterus better characterized on MR pelvis of 10/04/2022. Endometrial thickness in right uterine horn is 7 mm and the left uterine horn 4-6 mm. 1.2 x 0.9 x 0.9 cm fibroid, previously 0.8 x 0.8 x 0.8 cm. 1.0 x 0.7 x 1.3 cm fibroid, previously 1.0 x 0.9 x 1.0 cm. IUD not visualized. Per clinical history provided, IUD removed in 2022. Right ovary measures 3.3 x 2.0 x 2.3 cm, volume 6.9 mL. 1.4 x 2.1 x 1.4 cm simple cyst within the right ovary. Right adnexal 1.9 x 2.2 x 1.8 cm heterogeneous, echogenic shadowing lesion within or abutting the right ovary is difficult to characterize, particularly in relation to right ovary, due to bowel gas. MRI demonstrated a 1.1 cm right ovarian lesion felt to favor a dermoid . Similar lesion measured 1.7 x 1.4 x 1.4 cm on ultrasound of 09/15/2022 and 2.0 x 1.8 x 1.8 cm on ultrasound of 07/26/2022. Small amount of free fluid in the pelvis. Left ovary measures 3.2 x 3.2 x 1.8 cm, volume 10.0 mL. Left ovarian 1.6 x 1.7 x 1.2 cm complex cyst with thick betancur, septations and low-level internal echoes, possibly a corpus luteum. MR demonstrated 1.5 cm cystic lesion in the left ovary felt represent a corpus luteal cyst and pelvic ultrasound of 2021 demonstrated a 1.5 cm left ovarian probable corpus luteum cyst. US/US pelvic and transvaginal IMPRESSION: 1. Fibroid uterus. 2. IUD not visualized. Per clinical history provided, IUD removed in 2022. 3. Right adnexal 2.2 cm heterogeneous, echogenic shadowing lesion within or abutting the right ovary is difficult to characterize, particularly in relation to right ovary, due to bowel gas. MRI of 2021 demonstrated a 1.1 cm right ovarian lesion felt to favor a dermoid . Similar lesion measured 1.7 x 1.4 x 1.4 cm on ultrasound of 09/15/2022 and 2.0 x 1.8 x 1.8 cm on ultrasound of 07/26/2022. 4. Left ovarian 1.7 cm complex cyst with thick betancur, septations and low-level internal echoes, possibly a corpus luteum. MR demonstrated 1.5 cm cystic lesion in the left ovary felt to represent a corpus luteal cyst and pelvic ultrasound of 2021 demonstrated a 1.5 cm left ovarian probable corpus luteum cyst. 5. Gynecologic consultation recommended to determine further management.
== END 2024-05-05 10:52 | disposition home or self-care (01) ==
LOC: HO.US 10:51
PROVIDERS: PCP Internal Medicine; Visit Provider Advanced Practice Midwife
DX: D36.9 Benign neoplasm, unspecified site (principal)
CPT/HCPCS: 76830; 76856

== ENCOUNTER 2024-05-21 08:35 | Outpatient (AMB) | payer OTHER, SELFPAY ==
--- NOTE | 2024-05-21 08:43 | MHC.OFFVIS ---
Vital Signs 05/21/24 08:49 Height 5 ft 1 in Weight 159 lb 8 oz BMI 30.1 BP 130/72 Blood Pressure Location Lt brachial Position Sitting Respiration 16 Pulse 84 Pulse Source Pulse Oximeter Pulse Oximetry (%) 100 Oxygen Delivery Method Room Air Intake Visit Reasons: 1 MONTH FOLLOW UP Intake Note: Patient comes in for 1 month follow up. Reports pain 9/10. Allergies aspirin Allergy (Mild, Verified 05/21/24 08:48) rash HPI Comments Details: Alexander is back in my office with continuous complain on cervicalgia. She had x-ray of the cervical spine which is absolutely normal short of the spinal lordosis loss. I explained to the patient that most likely her pain is related to severe spasticity of the muscles. I recommended her to go to physical therapy. I will make a referral. She had physical therapy in the past, she denied any help in the past. I explained to her that it is very important to get engaged into physical therapy and home exercise program. Home exercise program was explained to the patient. I also will schedule her for diagnostic medial branch block. It will be C4-C5 C6 medial branch block diagnostic on the right. Patient tried tizanidine and tizanidine was not helpful for controlling of her pain. It is interferes with her control. I explained to the patient that if she is taking tizanidine control might not be effective. She does not feel improvement on tizanidine she may as well stop it. However if she is taking it she needs to take other precautions against . Prior column pain in the entire neck starting from the base of the neck all the way up to the base of the skull. She reports most severe pain which flex her neck forward. She reports also severe pain aggravation when she flexes her head backwards and try to turn her head to the sideways. She reports that she tried in the past application of cold and heat to her neck and she reports minor improvement. She reports that her pain is most severe at night. She reports that sitting and flexing head forward to look at the self for makes her head worse. She tried ibuprofen p.r.n. for her pain. [facility] Medical History Dermoid cyst of right ovary Fibroids Dyslipidemia Abdominal pain Spider veins of both lower extremities Surgical History Hx of section Family History Maternal Grandfather Prostate CA Maternal Grandmother Diabetes Father Diabetes Social History Household Members: Spouse and Children Housing: House Alcohol intake: current Alcohol intake frequency: a few times a month Alcohol type: beer, wine and hard liquor Patient Tobacco Use Status: Never used Tobacco e-Cigarette/Vaping Use: Never Used Second Hand Smoke Exposure: No service: No Current occupational status: unemployed Sexual orientation: Straight/Heterosexual Gender identity: Female Cognitive needs: No Hearing needs: No Vision needs: No Female Reproductive History Menstrual Age of Menarche: 11 Review of Systems Const All systems reviewed & are unremarkable except as noted in HPI and below ENT Reports Normal hearing present Neuro Reports Normal hearing present, Denies Abnormal speech present and Denies Sensory deficit (Neuro) Physical Exam Vital Signs: Last Vital Signs Pulse 84 05/21/24 08:49 Resp 16 05/21/24 08:49 BP 130/72 05/21/24 08:49 Pulse Ox 100 05/21/24 08:49 Oxygen Delivery Method Room Air 05/21/24 08:49 BMI result Body Mass Index 30.1 Const General: no acute distress Orientation/consciousness: patient oriented x3 Eyes General: appearance normal, both eyes and all related structures Pupils: Equal, round and reactive pupils present EOM: EOMs intact bilaterally Neck Other: Flexing forward and flexing backwards strongly aggravates her pain. Axial compression does not aggravate her pain. Lhermitte sign is negative. Spurling test is negative bilaterally. Valsalva maneuver is positive for the pain increase in the cervical spine. Tenderness on palpation in paraspinal spinal region of the entire cervical spine. Neck: Yes normal visual inspection, No full ROM, Yes no lymphadenopathy and Yes no meningeal signs Chest Chest palpation & inspection: normal inspection of the chest Resp Effort & Inspection: normal respiratory effort, able to speak in complete sentences, normal respiratory pattern, no audible wheezes and no cough Cardio Jugular venous distension: no JVD GI Inspection: Yes normal to inspection Neuro General: patient oriented x3, gait normal and no meningeal signs Cranial nerves: Yes CN's II-XII intact bilaterally, Yes Equal, round and reactive pupils present, Yes Normal hearing present and Yes Ability to bilaterally elevate shoulders present Speech: No Abnormal speech present Gait exam (Neuro): Normal gait present Motor exam (neuro): 5/5 motor strength present throughout Sensory Exam: No Sensory deficit (Neuro) Extrem General: No pedal edema Psych Speech and movement: Normal speech and movement present Affect: normal affect Attitude: cooperative Thought process: Normal thought process present Thought content: Normal thought content present Insight: Good insight present (Psych) Judgement: Good judgement present (Psych) Results Reviewed Results Reviewed: 04/21/24 XR cervical spine 5V FINDINGS: The cervical spine is visualized to the level of C7-T1 on the lateral view. Loss of the usual cervical spine lordosis which may be due to positioning or muscle spasm. Vertebral body heights are maintained. Lateral masses of C1 are well aligned on C2. Visualized portion of the dens is intact. Disc space heights are maintained. No significant neural foraminal narrowing. No prevertebral soft tissue swelling. IMPRESSION: 1. Loss of the usual cervical spine lordosis which may be due to positioning or muscle spasm. 2. Vertebral body heights are maintained. Disc space heights are maintained. Assessment & Plan Assessment & Plan (1) Neck pain: Code(s): M54.2 - Cervicalgia Category: Medical (2) Spondylosis of cervical region without myelopathy or radiculopathy: Code(s): M47.812 - Spondylosis without myelopathy or radiculopathy, cervical region Category: Medical Plan This patient is suffering from cervicalgia which could be the result of muscular spasms and tension, it could be secondary to spondylosis of the cervical spine and facet joint arthropathy Tizanidine is not helpful and it can interfere with her control. I told her to stop tizanidine. I told her to go to physical therapy maybe few sessions and then continue home exercise program at least 4 times a day at least 15 20 minutes at a time. Her neck x-ray is negative short of reversal of the spinal lordosis. However the facet arthropathy often is missed on plain x-ray. To diagnose and potentially treat her cervical pain I will schedule her for right-sided C4-C5 C6 medial branch block diagnostic. She reports that most of the pain today is on the right side. Orders: Orders PT Evaluation and Treatment Today M54.2 - Cervicalgia Patient Instructions: I here by testify that I spent 32 minutes in conversation with this patient as well as evaluating her diagnostic studies planning her care and organizing this note. personalized living assistant Nel who is certified industrial safety and health technician was assisting today during our conversation. Coding Level of Care Code Est Pt Level 4 (48965) Diagnoses Neck pain M54.2 Spondylosis of cervical region without myelopathy or radiculopathy M47.812
[2024-05-21 08:49] VITALS: BP 130/72; PULSE 84; RESP 16; O2SAT 100; BMI 30.1
== END 2024-05-21 09:17 | disposition home or self-care (01) ==
PROVIDERS: PCP Internal Medicine; Visit Provider Anesthesiology
DX: M54.2 Cervicalgia (principal); M47.812 Spondylosis without myelopathy or radiculopathy, cervical region
CPT/HCPCS: 99214

== ENCOUNTER → 2024-05-21 08:35 | Outpatient (BNVA) | payer OTHER, SELFPAY | PROVIDERS: PCP Internal Medicine; Visit Provider Anesthesiology | DX: M47.812 Spondylosis without myelopathy or radiculopathy, cervical region (principal); N83.299 Other ovarian cyst, unspecified side; Z30.09 Encounter for other general counseling and advice on contraception | CPT/HCPCS: 99212 ==

== ENCOUNTER 2024-05-21 11:10 | Outpatient (AMB) | payer OTHER, SELFPAY ==
--- NOTE | 2024-05-21 11:17 | A.OFFVIS_ITS ---
Vital Signs 05/21/24 11:17 Height 5 ft 1 in Weight 158 lb 11.725 oz BMI 30.0 Intake Visit Reasons: tubal consult Intake Note: Patient here for tubal consult,have one child Asphalt Plant Laborer Required: Yes Asphalt Plant Laborer Language: Dispensing And Measuring Optician Services: Asphalt Plant Laborer Present (in person) Asphalt Plant Laborer Name: Leonora MANRIQUE Information Interpreted: non-clinical & clinical Allergies aspirin Allergy (Mild, Verified 05/21/24 11:21) rash Is last menstrual period known: Yes Last menstrual period: 05/21/24 HPI Comments Details: Presenting to discuss different options of control including sterilization. The patient has been on control pills and has completed her family is interested in permanent sterilization. The patient was diagnosed with a left complex ovarian cyst with mixed cystic and solid component since 2021 by ultrasound, this was followed by pelvic MRI , the findings were suggestive of dermoid cyst. The patient was seen by Dr. Concepcion Harvey at [facility] the plan was to observe if the patient becomes more symptomatic or the cyst enlarges or developed suspicious features to proceed with laparoscopic ovarian cystectomy/oophorectomy. Pelvic ultrasound repeated recently, the report still not available but unofficial reading showed a 2.2x1.9 x 1.8 cm left ovarian complex cyst with mixed cystic and solid component, the patient has been having an increase in her left lower quadrant discomfort. [facility] Medical History Dermoid cyst of right ovary Fibroids Dyslipidemia Abdominal pain Spider veins of both lower extremities Surgical History Hx of section Family History Maternal Grandfather Prostate CA Maternal Grandmother Diabetes Father Diabetes Social History Household Members: Spouse and Children Housing: House Alcohol intake: current Alcohol intake frequency: a few times a month Alcohol type: beer, wine and hard liquor Patient Tobacco Use Status: Never used Tobacco e-Cigarette/Vaping Use: Never Used Second Hand Smoke Exposure: No service: No Current occupational status: unemployed Sexual orientation: Straight/Heterosexual Gender identity: Female Cognitive needs: No Hearing needs: No Vision needs: No Female Reproductive History Menstrual Age of Menarche: 11 Date of last menstrual period: 05/21/24 Review of Systems Const All systems reviewed & are unremarkable except as noted in HPI and below Reports as per HPI and Reports no additional complaints GI Reports no additional complaints Reports no additional complaints Physical Exam Vital Signs: BMI result Body Mass Index 30.0 Assessment & Plan Assessment & Plan (1) Complex ovarian cyst: Code(s): N83.299 - Other ovarian cyst, unspecified side Category: Medical Plan: Discussed with the patient the persistent complex ovarian cyst solid component by unofficial reading of the pelvic Ultrasound, possible dermoid. The differential diagnosis discussed with the patient includes the following but not limited to: benign and malignant gynecological and non-gynecological. Discussed with the patient the finding on ultrasound history of of teratoma. Explained to the patient that these tumors have a characteristic imaging appearance, which allows reasonably accurate noninvasive diagnosis in many cases with high reported specificity is 98 to 100 percent, but definitive diagnosis is made at the time of surgical excision. Malignant transformation occurs in 0.2 to 2 percent of mature cystic teratomas The treatment is laparoscopic ovarian cystectomy in order to make a definitive diagnosis, preserve ovarian tissue, and avoid potential problems such as torsion, rupture, or development of malignant components. For women who have completed childbearing, salpingo-oophorectomy is also acceptable treatment. Benign cystic teratomas do not recur if surgically resected. Discussed with the patient that per ACOG guidelines, when a patient with a suspicious or persistent complex adnexal mass requires surgical evaluation, a physician trained to appropriately stage and debulk ovarian cancer should perform the operation. Surgical exploration should be performed in a hospital facility that has the necessary support and consultative services to optimize the patient?s outcome. When a malignant ovarian tumor is discovered incidentally, a gynecologic oncologist should be consulted intraoperatively. Although the risk of malignant transformation is low, Recommended to proceed with laparoscopic ovarian cystectomy/possible oophorectomy. Informed the patient that there is no gynecologic oncologist available on staff at [facility] , therefore the patient will be referred to an OBGYN practice at [facility] center of her choice where during surgery there is immediate access to a gynecologic oncologist intraoperatively in case there was any suspicion or evidence of malignancy. The patient elected to be schedule a follow-up appointment with MONICA Brody at [facility] since she already had an appointment with her in 03/20. Asked the patient to call back in case she cannot get in for an appointment at [facility] soon to schedule the procedure at [facility]. The patient verbalized understanding and agreed with the plan. (2) Family planning: Code(s): Z30.09 - Encounter for other general counseling and advice on contraception Category: Social Hx Plan: IDiscussed with the patient the different options of control including bi rth control pills/Nuvaring, DMPA, different types of IUD ?s, sterilization. All the pros, cons, risks and benefits of each were discussed with the patient. The patient is interested in laparoscopic bilateral sterilization. Asked the patient to follow up with Dr. Meadows regarding complex ovarian cyst , if laparoscopic ovarian cystectomy/oophorectomy scheduled, bilateral salpingectomy will be performed during the procedure. Instructed the patient to call our office back in case a referral appointment is not scheduled, missed or canceled so that we will assist on rescheduling another appointment, the patient verbalized understanding agreed with the plan. Coding Level of Care Code Est Pt Level 3 (84120) Diagnoses Complex ovarian cyst N83.299 Family planning Z30.09
== END 2024-05-21 13:18 | disposition home or self-care (01) ==
LOC: HO.HWS 11:10
PROVIDERS: PCP Internal Medicine; Visit Provider Obstetrics & Gynecology
DX: N83.299 Other ovarian cyst, unspecified side (principal); Z30.09 Encounter for other general counseling and advice on contraception
CPT/HCPCS: 99213

== ENCOUNTER 2024-05-28 07:53 | Outpatient (AMB) | payer OTHER, SELFPAY ==
--- NOTE | 2024-05-28 07:54 | MHC.OFFVIS ---
Intake Visit Reasons: US follow up Loss Prevention And Safety Manager Required: Yes Loss Prevention And Safety Manager Language: Software Technical Lead Services: Loss Prevention And Safety Manager Present (in person) Loss Prevention And Safety Manager Name: Leonora MANRIQUE Allergies aspirin Allergy (Mild, Verified 05/21/24 11:21) rash HPI Comments Details: Patient is here today for a follow up ultrasound results history of fibroids, ovarian cysts. She reports pelvic pain. Has a consult scheduled with Dr. Barry Harvey at [facility] due to her history of dermoid cyst, she would like a surgical removal. [facility] Medical History Dermoid cyst of right ovary Fibroids Dyslipidemia Abdominal pain Spider veins of both lower extremities Surgical History Hx of section Family History Maternal Grandfather Prostate CA Maternal Grandmother Diabetes Father Diabetes Social History Household Members: Spouse and Children Housing: House Alcohol intake: current Alcohol intake frequency: a few times a month Alcohol type: beer, wine and hard liquor Patient Tobacco Use Status: Never used Tobacco e-Cigarette/Vaping Use: Never Used Second Hand Smoke Exposure: No service: No Current occupational status: unemployed Sexual orientation: Straight/Heterosexual Gender identity: Female Cognitive needs: No Hearing needs: No Vision needs: No Female Reproductive History Menstrual Age of Menarche: 11 Review of Systems Const All systems reviewed & are unremarkable except as noted in HPI and below Physical Exam Const General: cooperative, healthy appearing and no acute distress Orientation/consciousness: patient oriented x3 GI Inspection: Yes normal to inspection Palpation (GI): Soft to palpation and Other GI palpation findings present (Nontender) Rectal Exam - Female: visual inspection normal General: Yes bladder normal to palpation External Female Exam: normal appearance of the urethra Speculum Exam - Vagina: normal appearance of the vagina, normal palpation and normal vaginal discharge Speculum Exam - Cervix: normal appearance of the cervix and normal palpation Bimanual exam- vagina & uterus: normal bimanual exam, normal palpation, uterine size normal, bladder normal to palpation, normal palpation, uterine shape normal and non-tender Bimanual Exam- Adnexa, other: normal adnexae Neuro General: patient oriented x3 Results Reviewed Results Reviewed: [address] [address] Ultrasound Report Signed Patient: Alexander Xie MR#: [id number] : 1985 Acct:[id number] Age/Sex: 38 / F ADM Date: 05/05/24 Loc: HO.US Attending Dr: Denise Madrid CNM Ordering Physician: Denise Madrid CNM Date of Service: 05/05/24 Procedure(s): US pelvic and transvaginal Accession Number(s): [id number] cc: Denise Madrid CNM; Anyi Lyon MD~ EXAMINATION: US PELVIS CLINICAL INFORMATION: Benign neoplasm, unspecified site. Fibroids, dermoid right ovary, last menstrual period 3 weeks ago. COMPARISON: MR pelvis 10/04/2022. Ultrasound pelvis 09/15/2022. TECHNIQUE: Ultrasound of the pelvis is performed using both transabdominal and transvaginal transducers along with Doppler. Transvaginal imaging is performed due to inadequate visualization transabdominally. FINDINGS: Uterus is retroverted and measures 8.8 x 4.0 x 5.0 cm. Septate configuration of uterus better characterized on MR pelvis of 10/04/2022. Endometrial thickness in right uterine horn is 7 mm and the left uterine horn 4-6 mm. 1.2 x 0.9 x 0.9 cm fibroid, previously 0.8 x 0.8 x 0.8 cm. 1.0 x 0.7 x 1.3 cm fibroid, previously 1.0 x 0.9 x 1.0 cm. IUD not visualized. Per clinical history provided, IUD removed in 2022. Right ovary measures 3.3 x 2.0 x 2.3 cm, volume 6.9 mL. 1.4 x 2.1 x 1.4 cm simple cyst within the right ovary. Right adnexal 1.9 x 2.2 x 1.8 cm heterogeneous, echogenic shadowing lesion within or abutting the right ovary is difficult to characterize, particularly in relation to right ovary, due to bowel gas. MRI demonstrated a 1.1 cm right ovarian lesion felt to favor a dermoid . Similar lesion measured 1.7 x 1.4 x 1.4 cm on ultrasound of 09/15/2022 and 2.0 x 1.8 x 1.8 cm on ultrasound of 07/26/2022. Small amount of free fluid in the pelvis. Left ovary measures 3.2 x 3.2 x 1.8 cm, volume 10.0 mL. Left ovarian 1.6 x 1.7 x 1.2 cm complex cyst with thick betancur, septations and low-level internal echoes, possibly a corpus luteum. MR demonstrated 1.5 cm cystic lesion in the left ovary felt represent a corpus luteal cyst and pelvic ultrasound of 2021 demonstrated a 1.5 cm left ovarian probable corpus luteum cyst. US/US pelvic and transvaginal IMPRESSION: 1. Fibroid uterus. 2. IUD not visualized. Per clinical history provided, IUD removed in 2022. 3. Right adnexal 2.2 cm heterogeneous, echogenic shadowing lesion within or abutting the right ovary is difficult to characterize, particularly in relation to right ovary, due to bowel gas. MRI of 2021 demonstrated a 1.1 cm right ovarian lesion felt to favor a dermoid . Similar lesion measured 1.7 x 1.4 x 1.4 cm on ultrasound of 09/15/2022 and 2.0 x 1.8 x 1.8 cm on ultrasound of 07/26/2022. 4. Left ovarian 1.7 cm complex cyst with thick betancur, septations and low-level internal echoes, possibly a corpus luteum. MR demonstrated 1.5 cm cystic lesion in the left ovary felt to represent a corpus luteal cyst and pelvic ultrasound of 2021 demonstrated a 1.5 cm left ovarian probable corpus luteum cyst. 5. Gynecologic consultation recommended to determine further management. Dictated By: Charlene Munguia MD Signed By: <Electronically signed by Charlene Munguia MD in OV> 05/26/24 0934 DD/ 1132 TD/TT: Heat Treater: Assessment & Plan Assessment & Plan (1) Complex ovarian cyst: Code(s): N83.299 - Other ovarian cyst, unspecified side Category: Medical (2) Dermoid cyst: Code(s): D36.9 - Benign neoplasm, unspecified site (3) Encounter to discuss test results: Code(s): Z71.2 - Person consulting for explanation of examination or test findings Plan Discussed: Ultrasound findings as noted in report. Report was faxed over to [facility] previously. Keep follow up with [facility] for surgical consult. All of her questions and concerns were addressed to the best of my ability and shared decision making. She is agreeable to the plan of care. This note is constructed using voice recognition software. While every effort has been made to ensure accuracy, ophthalmology surgical technician errors may have been included. Coding Level of Care Code Est Pt Level 3 (55746) Diagnoses Complex ovarian cyst N83.299 Dermoid cyst D36.9 Encounter to discuss test results Z71.2
== END 2024-05-28 13:39 | disposition home or self-care (01) ==
LOC: HO.HWS 07:53
PROVIDERS: PCP Internal Medicine; Visit Provider Advanced Practice Midwife
DX: N83.299 Other ovarian cyst, unspecified side (principal); D36.9 Benign neoplasm, unspecified site; Z71.2 Person consulting for explanation of examination or test findings
CPT/HCPCS: 99213

== ENCOUNTER → 2024-05-28 07:53 | Outpatient (BNVA) | payer OTHER, SELFPAY | PROVIDERS: PCP Internal Medicine; Visit Provider Advanced Practice Midwife | DX: Z71.2 Person consulting for explanation of examination or test findings (principal); N83.299 Other ovarian cyst, unspecified side; D36.9 Benign neoplasm, unspecified site | CPT/HCPCS: 99212 ==

== ENCOUNTER 2024-06-26 11:00 | Outpatient (RCR) | payer OTHER, SELFPAY ==
--- NOTE | 2024-06-11 15:22 | MHC.PT.EP ---
[facility] [place] Office [place] Office [place] Office [address] Vik Mcgrath [address] [phone] F: [phone] F: [phone] F: [phone] F: [phone] Physical Therapy Plan of Care Date of Evaluation: 06/11/24 Date of Surgery: NA Diagnosis: Cervicalgia Assessment: Alexander is a 38 year old female who is referred to PT for cervicalgia . She reports of having gradual onset of neck pain about 5 months back. She denies any trauma or falls. Her symptoms have gotten worse with time. On PT examination she presents with TTP along cervical spine, B UT, decreased cervical ROM, decreased cervical, shoulder and scap muscle strength, and altered posture. She lives with her family and is independent with all ADLS but has pain with looking down, overhead activities, carrying weight and early mornings. She is unemployed. She would benefit from skilled PT to address the aforementioned impairments and improve tolerance to functional activities. Frequency and Duration: The patient will be seen 2/week for 4 weeks Short Term Goals: 1. Pt will have 50% decrease in pain which will enable her to sleep through the night in 2 weeks. 2. Pt will be able to move her neck through all planes of motion without pain which will enable her perform self care activities without pain in 3 weeks. Door Frame Assembler Machine Goals: 1. Pt will demonstrate an increase in muscle strength by 1 grade which will enable her to perform cleaning, carrying heavy weights and other IADLS with a pain no more than 2/10 in 4 weeks. 2. Pt will be independent with all HEP for symptom management and maintenance following d/c in 4 weeks. Treatment Plan: Modalities to reduce pain, spasms and effusion. Manual therapy to restore motion and function. Therapeutic exercise to improve strength and flexibility. Neuromuscular re-education for posture and balance. Therapeutic activities to return to functional activities of daily living. Electronically signed by: Odalis Duque PT DPT Please sign and return to therapist. Thank you for your referral.
--- NOTE | 2024-07-14 10:35 | MHC.PT.DC ---
[facility] [place] Office [place] Office [place] Office [address] Vik Mcgrath [address] [phone] F: [phone] F: [phone] F: [phone] F: [phone] Physical Therapy Discharge Report Diagnosis: Cervicalgia Date of Surgery: NA Date of Evaluation: 06/11/24 Date of Discharge: 07/14/24 Treatments to Date: 4 Cancellations to Date: 3 No Shows to Date: 3 Discharge Status: Visit Non-compliance Discharge Summary: Alexander attended only 4 PT visits. She no showed 3 and canceled 3. She is therefore being d/c from PT for non compliance. Electronically signed by: Odalis Duque PT DPT Please sign and return to therapist. Thank you for your referral.
== END 2024-12-04 15:47 | disposition home or self-care (01) ==
LOC: HO.PT 11:00
PROVIDERS: PCP Internal Medicine; Visit Provider Anesthesiology
DX: M54.2 Cervicalgia (principal)
CPT/HCPCS: 97110; 97112; 97140; 97161

== ENCOUNTER 2024-07-16 12:57 | Outpatient (AMB) | payer OTHER, SELFPAY ==
--- NOTE | 2024-07-16 13:27 | MHC.OFFVIS ---
Vital Signs 07/16/24 13:28 Height 5 ft 1 in Weight 158 lb 11.725 oz BMI 30.0 BP 117/59 L Blood Pressure Location Lt brachial Position Sitting Pulse 72 Intake Visit Reasons: Abdominal pain Intake Note: Alexander presents in the office as a new patient for abdominal pains. CC: She states that she is having pains in her abdomen. She states that she is having acid reflux, lots of diarrhea and whenever she eats she gets pains in the left side of her abdomen. She states that the stools come out quick and loose and she has lots of heartburn. Greenhouse Grower Required: Yes Greenhouse Grower Name: Lonny [id number] Allergies aspirin Allergy (Mild, Verified 07/16/24 13:32) rash HPI Comments Details: 38 y.o F who is here for abd pain. Pain is in lower abd assoc with nausea and diarrhea. Stools are black per her report but pt also reports taking peptobismol. Appetite is unchanged. Was prescribed omeprazole by her PCP. Pt also has known ovarian lesions bilaterally. Does not smoke. Drinks socially. [facility] Medical History (Updated 07/16/24 @ 14:08 by Laura Toussaint MD) Dermoid cyst of right ovary Fibroids Dyslipidemia Abdominal pain Spider veins of both lower extremities Surgical History (Updated 07/16/24 @ 13:36 by BURTON Serna) History of esophagogastroduodenoscopy (EGD) Hx of section Family History Maternal Grandfather Prostate CA Maternal Grandmother Diabetes Father Diabetes Social History Household Members: Spouse and Children Housing: House Alcohol intake: current Alcohol intake frequency: a few times a month Alcohol type: beer, wine and hard liquor Patient Tobacco Use Status: Never used Tobacco e-Cigarette/Vaping Use: Never Used Second Hand Smoke Exposure: No service: No Current occupational status: unemployed Sexual orientation: Straight/Heterosexual Gender identity: Female Cognitive needs: No Hearing needs: No Vision needs: No Female Reproductive History Menstrual Age of Menarche: 11 Review of Systems Const All systems reviewed & are unremarkable except as noted in HPI and below Physical Exam Vital Signs: Last Vital Signs Pulse 72 07/16/24 13:28 BP 117/59 L 07/16/24 13:28 BMI result Body Mass Index 30.0 No apparent distress Nonicteric Abdomen soft, nondistended Alert and oriented x3, normal gait Assessment & Plan Assessment & Plan (1) Change in bowel habit: Code(s): R19.4 - Change in bowel habit Category: Medical (2) Abdominal pain: Code(s): R10.9 - Unspecified abdominal pain Category: Medical Qualifiers: Abdominal location: generalized Qualified Code(s): R10.84 - Generalized abdominal pain Plan DDx include IBD, celiac, PUD, symptomatic gallstones, hyperthyroidism etc. Plan: - Check labs as below - US abd - Cont omeprazole - EGD/colo based on results Follow up 6 weeks Orders: Orders Liver Panel 07/16/24 R10.84 - Generalized abdominal pain, R19.4 - Change in bowel habit Immunoglobulin A 07/16/24 R10.84 - Generalized abdominal pain, R19.4 - Change in bowel habit C Reactive Protein 07/16/24 R10.84 - Generalized abdominal pain, R19.4 - Change in bowel habit US abdomen complete 07/16/24 R10.84 - Generalized abdominal pain Complete Blood Count no Diff 07/16/24 R10.84 - Generalized abdominal pain, R19.4 - Change in bowel habit Calprotectin, Fecal 07/16/24 R10.84 - Generalized abdominal pain, R19.4 - Change in bowel habit Transglutaminase IgA 07/16/24 R10.84 - Generalized abdominal pain, R19.4 - Change in bowel habit TSH reflex Free T4 07/16/24 R10.84 - Generalized abdominal pain, R19.4 - Change in bowel habit Coding Level of Care Code New Pt Level 4 (21707) Diagnoses Change in bowel habit R19.4 Generalized abdominal pain R10.84 Abdominal location: generalized
[2024-07-16 13:28] VITALS: BP 117/59; PULSE 72
== END 2024-07-16 15:23 | disposition home or self-care (01) ==
LOC: HO.HGI 12:57
PROVIDERS: PCP Internal Medicine; Visit Provider Internal Medicine
DX: R19.4 Change in bowel habit (principal); R10.84 Generalized abdominal pain
CPT/HCPCS: 99204

== ENCOUNTER → 2024-07-16 12:57 | Outpatient (BNVA) | payer OTHER, SELFPAY | PROVIDERS: PCP Internal Medicine; Visit Provider Internal Medicine | DX: K21.9 Gastro-esophageal reflux disease without esophagitis (principal); R10.9 Unspecified abdominal pain; R19.7 Diarrhea, unspecified; R11.0 Nausea; R19.4 Change in bowel habit; R10.84 Generalized abdominal pain | CPT/HCPCS: 99202 ==

== ENCOUNTER 2024-07-28 09:28 | Outpatient (REF) | payer OTHER, SELFPAY ==
--- NOTE | ~2024-07-28 | US_ITS ---
EXAMINATION: US ABDOMEN COMPLETE CLINICAL INFORMATION: Generalized abdominal pain. COMPARISON: None available. TECHNIQUE: Real-time imaging of the abdominal viscera. FINDINGS: PANCREAS: Normal. ABDOMINAL AORTA: The proximal, mid, and distal segments are normal in caliber. INFERIOR VENA CAVA: Visualized portions are normal. LIVER: Normal. The liver is normal in size. The liver contour is normal. Parenchymal echogenicity is normal. No focal hepatic lesion. There is no intrahepatic biliary duct dilatation seen. GALLBLADDER: Normal. The gallbladder is physiologically distended without evidence of stones, sludge, polyps, wall thickening or pericholecystic fluid. COMMON BILE DUCT: Normal in caliber measuring 0.3 cm in diameter. RIGHT KIDNEY: Normal. No hydronephrosis. A 4 mm nonobstructing calculus is seen at the lower pole. No focal parenchymal lesions. The kidney measures 10.3 cm in maximum dimension. LEFT KIDNEY: Normal. No hydronephrosis. A 2 mm nonobstructing calculus is seen at the lower pole. No focal parenchymal lesions. The kidney measures 10.2 cm in maximum dimension. SPLEEN: Normal. The spleen measures 8.0 cm in maximum dimension. FREE FLUID: None. US/US abdomen complete IMPRESSION: There are nonobstructing bilateral renal calculi, as detailed. The examination is otherwise unremarkable. Electronically signed by: Sriram Perez MD 09/09/2024 09:14 PM SALLY
[2024-07-28 12:19] LABS: Hematocrit 37.5 % (37.0-47.0); Hemoglobin 12.4 g/dl (12.0-16.0); Mean Corpuscular HGB Conc 33.1 g/dl (31.0-35.0); Mean Corpuscular Hemoglobin 30.2 pg (27.0-33.0); Mean Corpuscular Volume 91.5 fL (80.0-98.0); Mean Platelet Volume 10.5 fL (9.4-12.3); Platelet Count 260 X10*3/uL (160-400); Red Cell Distribution Width 12.7 % (11.0-16.0); White Blood Count 5.4 X10*3/uL (4.8-10.8)
[2024-07-28 12:46] LABS: Alanine Aminotransferase 14 U/L (0-31); Albumin Level 3.9 g/dL (3.5-5.0); Alkaline Phosphatase 36 U/L (39-117); Aspartate Amino Transferase 14 U/L (5-31); Bilirubin Direct 0.3 mg/dL (0.0-0.5); Bilirubin Total 0.9 mg/dL (0.0-1.0); C Reactive Protein 0.81 mg/dL (< or = 0.50); Total Protein 7.1 g/dL (6.5-8.0)
[2024-07-28 13:05] LABS: TSH reflex Free T4 1.57 uIU/mL (0.32-4.0)
[2024-07-29 10:33] LABS: Immunoglobulin A 183 mg/dL (47-310)
[2024-08-01 13:33] LABS: Transglutaminase IgA 1.5 U/mL
[2024-08-02 20:09] LABS: Calprotectin, Fecal 154 mcg/g
== END 2024-07-28 09:29 | disposition home or self-care (01) ==
LOC: HO.US 09:28
PROVIDERS: PCP Internal Medicine; Visit Provider Internal Medicine
DX: R10.84 Generalized abdominal pain (principal); R19.4 Change in bowel habit
CPT/HCPCS: 36415; 76700; 80076; 82784; 83993; 84443; 85027; 86140; 86364

== ENCOUNTER 2024-11-10 14:33 | Outpatient (REF) | payer OTHER, SELFPAY | END 2024-11-10 14:34 | disposition home or self-care (01) | LOC: HO.MAMMO 14:33 | PROVIDERS: PCP Internal Medicine; Visit Provider Advanced Practice Midwife | DX: Z12.31 Encounter for screening mammogram for malignant neoplasm of breast (principal) | CPT/HCPCS: 77063; 77067 ==

== ENCOUNTER → 2024-11-10 15:00 | Outpatient (BNV) | payer OTHER, SELFPAY | PROVIDERS: PCP Internal Medicine; Visit Provider Internal Medicine | DX: Z12.31 Encounter for screening mammogram for malignant neoplasm of breast (principal) | CPT/HCPCS: 77063; 77067 ==

== ENCOUNTER 2025-03-04 15:20 | Outpatient (AMB) | payer OTHER, SELFPAY ==
--- NOTE | 2025-03-04 16:06 | MHC.PC.OV ---
Vital Signs 03/04/25 16:08 Height 5 ft 1 in Weight 159 lb BMI 30.0 BP 110/82 Blood Pressure Location Lt brachial Position Sitting Intake Visit Reasons: annual exam Intake Note: Patient here for a physical exam, c/o frequent headaches Industrial Analyst Required: No Accompanied by: Self / Same As Patient Allergies aspirin Allergy (Mild, Verified 03/04/25 16:19) rash Medication List - Last Reconciled 03/04/25 by Anyi Nixon MD desogestrel-ethinyl estradiol 0.15-0.03 mg (Apri) 1 tab PO DAILY 90 days Tobacco use date assessed: 03/04/25 Dental Screening Dental Screen Date: 03/04/25 Did you have a dental visit in the last 12 months?: No Did you have a dental problem in the last 6 months where you did not have access to dental care?: No Was dental information given to patient?: No HPI HPI Comments History of Present Illness Details The patient is a 39-year-old female presenting for her physical exam. She describes her migraines as frequent and severe, primarily affecting the left side of her head, and has been experiencing them for several months. The migraines intensify with screen exposure, and although she takes Tylenol, complete relief is not achieved. The inability to confirm her tetanus vaccination status raised the prospect of needing a booster. Family history includes hypertension in both parents and mild diabetes in her father. - Discussion about updating tetanus vaccination, considering last vaccination may be over 10 years ago. - Review of hypertension as a familial condition with brief family history discussion. - Scheduled lab tests for cholesterol, blood glucose, and renal function. - Plans for MRI of the head for further evaluation of migraines. [facility] Medical History (Updated 03/04/25 @ 19:05 by Anyi Nixon MD) Dermoid cyst of right ovary Fibroids Dyslipidemia Abdominal pain Spider veins of both lower extremities Surgical History History of esophagogastroduodenoscopy (EGD) Hx of section Family History (Updated 03/04/25 @ 16:23 by Anyi Nixon MD) Maternal Grandfather Prostate CA Maternal Grandmother Diabetes Father Diabetes Mother Essential hypertension Social History Household Members: Spouse and Children Housing: House Alcohol intake: current Alcohol intake frequency: a few times a month Alcohol type: beer, wine and hard liquor Patient Tobacco Use Status: Never used Tobacco e-Cigarette/Vaping Use: Never Used Second Hand Smoke Exposure: No service: No Current occupational status: unemployed Sexual orientation: Straight/Heterosexual Gender identity: Female Cognitive needs: No Hearing needs: No Vision needs: No Female Reproductive History Menstrual Age of Menarche: 11 Questionnaire PHQ-9 Over the last 2 weeks, how often have you been bothered by any of the following problems? 1. Little interest or pleasure in doing things: not at all 2. Feeling down, depressed, or hopeless: not at all 3. Trouble falling or staying asleep, or sleeping too much: more than half the days 4. Feeling tired or having little energy: more than half the days 5. Poor appetite or overeating: more than half the days 6. Feeling bad about yourself - or that you are a failure or have let yourself or your family down: not at all 7. Trouble concentrating on things, such as reading the newspaper or watching television: not at all 8. Moving or speaking so slowly that other people could have noticed. Or the opposite - being so fidgety or restless that you have been moving around a lot more than usual: several days 9. Thoughts that you would be better off or of hurting yourself in some way: not at all Total score: 7 Depression Screening Interpretation: Positive Depression Screening Follow-up: Existing condition, New Medication prescribed, Follow-up Visit Requested and Declines treatment Depression Screening Done: Yes 25646 - PHQ-9 Billing: Yes Source: Developed by Drs. Grayson Jaramillo, Radha Moffett, Fred Baker and colleagues, with an educational mary from [employer]. Thrive Questionnaire Date Thrive assessed: 03/04/25 I am a: Patient What is your living situation today?: I have a steady place to live Within the past 12 months, did the food you bought not last and you didn't have the money to get more?: Never true Within the past 12 months, did you worry whether your food would run out before you got money to buy more?: Never true Do you have trouble paying for medicines?: No Do you have trouble getting transportation to medical appointments?: No Do you have trouble paying your heating and electricity bill?: No Do you have trouble taking care of your child, family member or friend?: No Do you have trouble with day-to-day activities such as bathing, preparing meals, shopping, managing finances, etc.?: No Are you currently unemployed and looking for a job?: No Are you interested in more education?: No Please select the resources that you would like help with: None Currently or been in a relationship where the following occur: No concerns reported THRIVE Score: 0 AUDIT C Alcohol Use Questionnaire (AUDIT-C) 1. How often do you have a drink containing alcohol?: 2-4 times a month 2. How many drinks containing alcohol do you have on a typical day when you are drinking?: 1 or 2 3. How often do you have six or more drinks on one occasion?: Never Total Score: 2 Score Reviewed/Action Taken: No ANDRE-7 AMB Questionnaire ANDRE-7 Date ANDRE - 7 assessed: 03/04/25 Feeling nervous, anxious, or on edge: 1 = Several days Not being able to stop or control worryin = Not at all Worrying too much about different things: 1 = Several days Trouble relaxin = Several days Being so restless that it is hard to sit still: 0 = Not at all Becoming easily annoyed or irritable: 0 = Not at all Feeling afraid as if something awful might happen: 0 = Not at all Total NADRE-7 score (0-4 normal; 5-9 mild; 10-14 moderate; 15-21 severe): 3 Source: Developed by Drs. Grayson Jaramillo, Radha Moffett, Fred Baker and colleagues, with an educational mary from [employer]. ANDRE-7 Assessment Billing ANDER-7 Assessment Tool: ANDRE-7 Assessment 53048 Review of Systems Const All systems reviewed & are unremarkable except as noted in HPI and below Card Denies chest pain at rest, Denies chest pain with activity, Denies edema, Denies irregular heart rhythm, Denies claudication, Denies dyspnea, Denies dyspnea on exertion, Denies orthopnea, Denies paroxysmal nocturnal dyspnea and Denies slow heart rate Resp Denies cough, Denies dyspnea and Denies dyspnea on exertion Musc Denies abnormal gait, Denies atrophy, Denies deformity and Denies limited range of motion Neuro Denies abnormal gait and Denies lack of coordination Physical exam (Primary Care) Vital Signs: Last Vital Signs BP 110/82 03/04/25 16:08 BMI result Body Mass Index 30.0 Tobacco/Smoking Status: Tobacco use Status Tobacco use date assessed 03/04/25 03/04/25 16:15 Patient Tobacco Use Status Never used Tobacco 03/04/25 16:15 e-Cigarette/Vaping Use Never Used 03/04/25 16:15 PHQ-9: PHQ-9 Score PHQ-9: Total score 7 03/04/25 16:30 Depression Screening Interpretation: Positive Depression Screening Follow-up: Existing condition, New Medication prescribed, Follow-up Visit Requested and Declines treatment Thrive Assessment: Date of Thrive Assessment Date Thrive assessed 03/04/25 03/04/25 16:15 Currently or been in a relationship where the following occur: No concerns reported HENIN Head: Yes normal to inspection, Yes normocephalic and Yes atraumatic Ears: external ears normal Eyes General: appearance normal, both eyes and all related structures Eyelids: Yes eyelids normal Conjunctivae: conjunctivae normal Neck Neck: Yes normal visual inspection and Yes supple Resp Effort & Inspection: normal respiratory effort Auscultation: clear to auscultation bilaterally Cardio Jugular venous distension: no JVD Rate: regular rate Rhythm: regular rhythm Heart sounds: S1 normal heart sound present and S2 normal heart sound present GI Inspection: Yes normal to inspection Palpation (GI): Soft to palpation and nontender Auscultation: normal bowel sounds Skin General skin exam: no rashes or lesions noted Neuro General: no focal motor deficits Extrem General: Yes full ROM Psych Appearance: grossly normal Immunizations Boostrix Tdap 2.5 Lf unit-8 mcg-5 Lf/0.5 mL intramuscular syringe Performing Provider: Anyi Nixon MD [facility] Administered by: BURTON Romeo on 03/04/25 16:30 Dose Route Admin Location Dispensed Lot Number Expiration Date [facility] Hand Carver 0.5 mL IM Left Deltoid 0.5 mL [id number] 06/23/27 [id number] [employer] [facility] VIS Given Date VIS Provided VIS Publication Date 03/04/25 Single Vaccine 24 Eligibility Eligibility Date Funding Source Not [facility] Eligible 03/04/25 Private Coding Level of Care Code Est Pt Level 3 (85175) Est Pt Prev Care 40-64y(70922) Diagnoses Physical exam Z00.00 New daily persistent headache G44.52 Mild major depression F32.0 Additional Codes ANDRE-7 Assessment Billing - ANDRE-7 Assessment Tool: ANDRE-7 Assessment 77078 ([id number]) PHQ-9 - 45418 - PHQ-9 Billing: Yes ([id number]) Time Spent (min) 35 Assessment & Plan Assessment & Plan (1) Physical exam: Code(s): Z00.00 - Encounter for general adult medical examination without abnormal findings Category: Medical (2) New daily persistent headache: Code(s): G44.52 - New daily persistent headache (NDPH) Category: Medical (3) Mild major depression: Code(s): F32.0 - Major depressive disorder, single episode, mild Category: Medical Plan The patient has been advised on potential migraine management, including starting on preventive medication that also aids in depression relief and sleep improvement. An MRI of the head was ordered, and a urine culture was initiated to identify potential infections. Continued monitoring of hypertension was discussed given family history, and administration of a tetanus vaccine was recommended and planned due to lack of recent records. Routine blood work will be completed to ensure overall well-being and screen for common conditions such as hyperlipidemia and diabetes. Patient was informed and verbally consented to the use of an ambient scribe for clinic note documentation during this visit. During the consultation, I discussed with the patient the likely migraines contributing to her daily headaches and possible preventive therapies to reduce their frequency and intensity. We explored the link between her urinary symptoms and a likely urinary tract infection, with a urine culture recommended for confirmation. The significance of updating her tetanus vaccination was highlighted, particularly with the lack of recent immunization records. We talked about her mild depressive symptoms, acknowledging that the newly prescribed migraine medication could simultaneously assist with mood improvement. The suggested MRI for migraines was explained as a precautionary procedure, and the patient voiced understanding and agreement. Preventive labs and their importance in comprehensive health management were also addressed. Orders: Orders Lipid Panel Today E78.5 - Hyperlipidemia, unspecified Comprehensive [place]. Panel Fast Today Z00.00 - Encounter for general adult medical examination without abnormal findings MR head/brain wo con Today G44.52 - New daily persistent headache (NDPH) UA CC w/rflx Micro + Cult Today R30.0 - Dysuria TDaP Immunization Today Z23 - Encounter for immunization Complete Blood Count Auto Diff Today D64.9 - Anemia, unspecified Medications: New sumatriptan succinate do not exceed 8 doses per 24 hrs 25 mg PO Q2-4H PRN 9 tabs 1RF migraine headache 30 days amitriptyline 10 mg PO BEDTIME 90 tabs 0RF 90 days Patient Instructions: - Start prescribed migraine prevention medication as directed. - Receive a tetanus booster today. - Complete MRI of the head as instructed. - Obtain urine sample for culture as advised. - Return for lab work, including cholesterol, blood glucose, and kidney function tests. - Report any worsening of symptoms or new problems immediately.
[2025-03-04 16:08] VITALS: BP 110/82
--- OUTSIDE RECORDS SUMMARY | 2025-03-04 16:16 | XMS_ITS | Clinical Summary ---
Author Organization [employer] [facility] Address [address] [place] [address] Care Team Providers Care Trading Assistant Name Role Phone Unavailable Primary Care Provider Unavailabl e Allergies Active Allergy Reactions Criticality Noted Date Comments Aspirin Hives 05/24/2023 Medications norethindrone-et hinyl estradiol (Femhrt 11/02) 1-5 MG-MCG tablet Take by mouth in the morning. Active Active Problems Problem Noted Date Diagnosed Date Dental calculus 05/24/2023 Dental caries 05/24/2023 Social History Tobacco Use Types Packs/Day Years Used Date Smoking Tobacco: Never Passive Smoke Exposure: Never Smokeless Tobacco: Never Tobacco Cessation:Counseling Given: Not Answered Alcohol Use Standard Drinks/Week Comments Never 0 (1 standard drink = 0.6 oz pur e alcohol) Comments Unknown Sex and Gender Information Value Date Recorded Sex Assigned at Female 11/02/2022 2:06 PM EST Legal Sex Female 2:06 PM EST Gender Identity Female 11/02/2022 2:06 PM EST Sexual Orientation Choose not to disclose 2022 2:06 PM EST Last Filed Vital Signs Vital Sign Reading Time Taken Comments Blood Pressure 118/70 06/12/2023 10:00 AM EDT Pulse 68 06/12/2023 10:00 AM EDT Temperature - - Respiratory Rate - - Oxygen Saturation - - Inhaled Oxygen Concentration - - Weight - - Height - - Body Mass Index - - Plan of Treatment Health Maintenance Due Date Last Done Comments Depression Screening 1984 HIV Screening 1984 SDOH Screening 1984 Alcohol/Substance Use Screening 1996 Family Planning (PISQ) 1999 Hepatitis C Screening 2002 DTaP/Tdap/Td Vaccines (1 - Tdap) 2003 Hepatitis B Vaccines (1 of 3 - 19+ 3-dose series) 2003 Pap Smear 2005 Cervical Cancer Screening 2014 HPV/Cotest 2014 Dental Oral Exam 11/25/2023 05/24/2023 Dental Prophylaxis 12/14/2023 06/12/2023 Dental X-Ray: Bitewings 05/25/2024 05/24/2023 Tobacco Screening 06/12/2024 06/12/2023 COVID-19 Vaccine (1 - 2023-2 5 season) 2024 Influenza Vaccine (#1) 2024 Mammogram 2024 Dental X-Ray: Full Mouth 05/25/2026 05/24/2023 Zoster Vaccines (1 of 2) 2034 RSV Patients and Pa tients Aged 60 years or older (1 - 1-dose 75+ series) 2059 HIB Vaccines Aged Out No longer eligi ble based on patient's age to complete this topic HPV Vaccines Aged Out No longer eligi ble based on patient's age to complete this topic Hepatitis A Vaccines Aged Out No long er eligible based on patient's age to complete this topic IPV Vaccines Aged Out No longer eligi ble based on patient's age to complete this topic Meningococcal Vaccine Aged Out No jessica leanne eligible based on patient's age to complete this topic Pneumococcal Vaccine: Pediat rics (0 to 5 Years) and At-Risk Patients (6 to 49) Years) Aged Out No longer elig ible based on patient's age to complete this topic RSV under 20 months Aged Out No longe r eligible based on patient's age to complete this topic Rotavirus Vaccines Aged Out No longer eligible based on patient's age to complete this topic Procedures Procedure Name Priority Date/Time Associated Diagnosis Comments PROPHYLAXIS - ADULT Routine 06/12/2023 1 0:00 AM EDT Tipped teeth Dental calculus INTRAORAL - COMPLETE SERIES OF RADIOGRAPHIC IMAGES Routine 05/24/2023 10:30 AM EDT COMPREHENSIVE ORAL EVALUATION - NEW OR ESTABLISHED PATIENT Routine 05/24/2023 10:30 AM EDT from Last 3 Months or Most Recently Relevant to Health Maintenance
--- OUTSIDE RECORDS SUMMARY | 2025-03-04 16:16 | XMS_ITS | Clinical Summary ---
Author Organization [facility] Address [address] [place] [address] Care Team Providers Care Polisher Brass Name Role Phone Unavailable Primary Care Provider Unavailabl e Social History Tobacco Use Types Packs/Day Years Used Date Smoking Tobacco: Never Assessed Comments Unknown Sex and Gender Information Value Date Recorded Sex Assigned at Not on file Legal Sex Female 3:00 AM EST Gender Identity Not on file Sexual Orientation Not on file Plan of Treatment Health Maintenance Due Date Last Done Comments Breast Cancer Screening 1984 DTaP,Tdap,and Td Vaccines (1 - Tdap) 2003 Hepatitis B Vaccines (1 of 3 - 19+ 3-dose series) 2003 Cervical Cancer Screening: P ap Smear 2005 COVID-19 Vaccine ( - 2023-2 5 season) 2024 Influenza Vaccine (Season Ended) 2025 HIB Vaccines Aged Out No longer eligi [...] on patient's age to complete this topic MMR Vaccines Aged Out No longer eligi ble based on patient's age to complete this topic Meningococcal ACWY Vaccine Aged Out N o longer eligible based on patient's age to complete this topic Meningococcal B Vaccine Aged Out No l onger eligible based on patient's age to complete this topic Pneumococcal Vaccine: Pediat rics (0 to 5 Years) and At-Risk Patients (6 to 64 Years) Aged Out No longer eligible b ased on patient's age to complete this topic RSV Immunization Patients Un lg 20 months Aged Out No longer eligible b ased on patient's age to complete this topic Varicella Vaccines Aged Out No longer eligible based on patient's age to complete this topic
--- OUTSIDE RECORDS SUMMARY | 2025-03-04 16:16 | XMS_ITS | Encounter Summary ---
Author Organization [employer] Address [address] [place] [address] Care Team Providers Care Stock Holder Name Role Phone Unavailable Primary Care Provider Unavailabl e Encounter Details Date Type Department Care Team (Late st Contact Info) Description 06/12/2023 Abstract [facility] [address], [place] [phone] Zaki Heidi [address] [place] [address] Social History Tobacco Use Types Packs/Day Years Used Date Smoking Tobacco: Never Passive Smoke Exposure: Never Smokeless Tobacco: Never Alcohol Use Standard Drinks/Week Comments Never 0 (1 standard drink = 0.6 oz pur e alcohol) Comments Unknown Sex and Gender Information Value Date Recorded Sex Assigned at Female 11/02/2022 2:06 PM EST Legal Sex Female 2:06 PM EST Gender Identity Female 11/02/2022 2:06 PM EST Sexual Orientation Choose not to disclose 2022 2:06 PM EST documented as of this encounter Plan of Treatment Not on file documented as of this encounter Visit Diagnoses Not on filedocumented in this encounter
== END 2025-03-04 16:42 | disposition home or self-care (01) ==
LOC: HO.HMCH 15:21
PROVIDERS: PCP Internal Medicine; Visit Provider Internal Medicine
DX: Z00.00 Encounter for general adult medical examination without abnormal findings (principal); G44.52 New daily persistent headache (NDPH); F32.0 Major depressive disorder, single episode, mild; Z23 Encounter for immunization

== ENCOUNTER → 2025-03-04 15:20 | Outpatient (BNVA) | payer OTHER, SELFPAY | PROVIDERS: PCP Internal Medicine; Visit Provider Internal Medicine | DX: Z00.00 Encounter for general adult medical examination without abnormal findings (principal); Z23 Encounter for immunization; G44.52 New daily persistent headache (NDPH); F32.0 Major depressive disorder, single episode, mild | CPT/HCPCS: 90471; 90715; 96127; 99212; 99396 ==

== ENCOUNTER 2025-03-07 09:29 | Outpatient (REF) | payer OTHER, SELFPAY ==
--- OUTSIDE RECORDS SUMMARY | 2025-03-07 09:30 | XMS_ITS | Encounter Summary ---
Author Organization [employer] [facility] [employer] Address [address] [place] [address] Care Team Providers Care Bend Up Name Role Phone Unavailable Primary Care Provider Unavailabl e Encounter Details Date Type Department Care Team (Late st Contact Info) Description 06/12/2023 Abstract [facility] AD[facility] [address], [place] [phone] Zaki Heidi [address] [place] [address] Social History Tobacco Use Types Packs/Day Years [...]
--- OUTSIDE RECORDS SUMMARY | 2025-03-07 09:30 | XMS_ITS | Clinical Summary ---
Author Organization [facility] Address [address] [place] [address] Care Team Providers Care Cabinetmaker Maintenance Name Role Phone Unavailable Primary Care Provider [...]
--- OUTSIDE RECORDS SUMMARY | 2025-03-07 09:30 | XMS_ITS | Clinical Summary ---
Author Organization [facility] ity Address [address] [place] [address] Care Team Providers Care Sales Team Member Name Role Phone Unavailable Primary Care Provider [...]
[2025-03-07 10:15] LABS: Basophils Percent Auto 0.4 % (0-2); Eosinophils Absolute Auto 0.1 X10*3/uL (0.0-0.4); Eosinophils Percent Auto 1.6 % (0-4); Hematocrit 39.4 % (37.0-47.0); Hemoglobin 12.9 g/dl (12.0-16.0); Imm Gran Abs Auto 0.01 X10*3/uL (0.00-0.03); Imm Gran Pct Auto 0.2 % (0.0-0.4); Lymphocytes Absolute Auto 1.8 X10*3/uL (1.2-4.9); Lymphocytes Percent Auto 39.3 % (20-40); MANUAL DIFF FLAG SCAN; Mean Corpuscular HGB Conc 32.7 g/dl (31.0-35.0); Mean Corpuscular Hemoglobin 30.1 pg (27.0-33.0); Mean Corpuscular Volume 91.8 fL (80.0-98.0); Mean Platelet Volume 11.4 fL (9.4-12.3); Monocytes Absolute Auto 0.2 X10*3/uL (0.1-1.2); Monocytes Percent Auto 4.2 % (2-11); Neutrophils Absolute Auto 2.4 x10*3/uL (2.0-8.3); Neutrophils Percent Auto 54.3 % (45-73); Platelet Count 175 X10*3/uL (160-400); Red Blood Count 4.29 X10*6/uL (4.20-5.50); Red Cell Distribution Width 13.5 % (11.0-16.0); SCAN SMEAR FLAG 1; White Blood Count 4.5 X10*3/uL (4.8-10.8)
[2025-03-07 10:16] LABS: Appearance Urine Clear; Color Urine Yellow; Glucose Urine UA Negative (Negative); Leukocyte Esterase Urine Negative (Negative); Nitrite Urine Negative (Negative); PH 7.5 (5.0-9.0); Urine Blood Negative (Negative); Urine Ketones Negative (Negative); Urine Protein Negative (Neg-Trace)
[2025-03-07 10:42] LABS: Alanine Aminotransferase 14 U/L (0-31); Albumin Level 3.8 g/dL (3.5-5.0); Alkaline Phosphatase 41 U/L (39-117); Anion Gap 13 (12-20); Aspartate Amino Transferase 22 U/L (5-31); Bilirubin Total 0.6 mg/dL (0.0-1.0); Blood Urea Nitrogen 9 mg/dL (9-16); Calcium 8.8 mg/dL (8.4-10.2); Carbon Dioxide 21 mmol/L (22-29); Chloride 108 mmol/L (96-108); Cholesterol 208 mg/dL (<200); Estimated Glomerular Filt Rate > 60; Glucose Fasting 77 mg/dL (60-99); HDL Cholesterol 88 mg/dL (>40); LDL Cholesterol Calculated 99 mg/dL (<100); Potassium 4.4 mmol/L (3.3-5.1); SLIDE REVIEW VERIFIED; Sodium 138 mmol/L (135-145); Total Protein 7.4 g/dL (6.5-8.0); Triglycerides 106 mg/dL (<150)
== END 2025-03-07 09:30 | disposition home or self-care (01) ==
LOC: HO.LAB 09:29
PROVIDERS: PCP Internal Medicine; Visit Provider Internal Medicine
DX: R10.9 Unspecified abdominal pain (principal); Z00.00 Encounter for general adult medical examination without abnormal findings; R30.0 Dysuria; E78.5 Hyperlipidemia, unspecified
CPT/HCPCS: 36415; 80053; 80061; 81003; 85025

== ENCOUNTER → 2025-03-12 17:46 | Outpatient (BNV) | payer OTHER, SELFPAY | PROVIDERS: PCP Internal Medicine; Visit Provider Radiology Diagnostic Radiology | DX: G44.52 New daily persistent headache (NDPH) (principal) | CPT/HCPCS: 70551 ==

== ENCOUNTER 2025-03-12 17:47 | Outpatient (REF) | payer OTHER, SELFPAY ==
--- NOTE | ~2025-03-12 | MR_ITS ---
EXAMINATION: MR BRAIN WITHOUT IV CONTRAST HISTORY: G44.52 - New daily persistent headache (NDPH) TECHNIQUE: Sagittal T1, and axial T1, FLAIR, T2, gradient echo, and diffusion weighted MR images of the brain were obtained. COMPARISON: None FINDINGS: The brain parenchyma is unremarkable, demonstrating normal babin/white differentiation. No foci of abnormal signal intensity are identified. The ventricular system is normal in size and configuration. There is no mass effect or midline shift. No intra or extra-axial fluid collections are identified. There are no foci of restricted diffusion. Normal vascular flow voids are noted in the basilar and carotid arteries. The visualized paranasal sinuses are clear. MR/MR head/brain wo con IMPRESSION: Unremarkable MRI of the brain without contrast. Electronically signed by: Grayson Lawrence MD 03/13/2025 07:26 AM EDT
== END 2025-03-12 17:48 | disposition home or self-care (01) ==
LOC: HO.MRI 17:47
PROVIDERS: PCP Internal Medicine; Visit Provider Internal Medicine
DX: G44.52 New daily persistent headache (NDPH) (principal)
CPT/HCPCS: 70551